=== PATIENT | female | born 1970 | race Caucasian/White ===

== ENCOUNTER 2019-02-15 23:11 | Inpatient (IN) | payer OTHER ==
[2019-02-15] MEDS ORDERED: SODIUM CHLORIDE 0.9% 2,000 ML IV STA (23:22)
[2019-02-15 23:43] LABS: Basophils % (A) 0 %; Eosinophils # (A) 0.4 k/uL (0-0.7); Eosinophils % (A) 3 %; HCT 44.7 % (34.0-46.0); Lymphocytes # (A) 2.3 k/uL (1.0-4.8); Lymphocytes % (A) 20 %; MCH 34.6 pg (25.0-35.0); MCHC 33.6 g/dL (31.0-37.0); Macrocytosis Slight; Mean Platelet Volume 7.4; Monocytes # (A) 0.4 k/uL (0-1.0); Monocytes % (A) 4 %; Neutrophils # (A) 8.4 k/uL (1.3-7.7); Neutrophils % (A) 73 %; Platelet Count 308 k/uL (150-450); RBC 4.34 m/uL (3.80-5.40); RDW 13.3 % (11.5-15.5); WBC 11.6 k/uL (3.8-10.6)
[2019-02-15 23:54] LABS: ALT 56 U/L (9-52); AST 59 U/L (14-36); Albumin 4.4 g/dL (3.5-5.0); Alkaline Phosphatase 113 U/L (38-126); Amylase 104 U/L (30-110); Anion Gap 14 mmol/L; Blood Urea Nitrogen 7 mg/dL (7-17); Calcium 9.4 mg/dL (8.4-10.2); Carbon Dioxide 23 mmol/L (22-30); Chloride 102 mmol/L (98-107); Glucose 172 mg/dL (74-99); Potassium 3.4 mmol/L (3.5-5.1); Sodium 139 mmol/L (137-145); Total Bilirubin 0.9 mg/dL (0.2-1.3); Total Protein 7.2 g/dL (6.3-8.2)
--- NOTE | 2019-02-16 00:09 | XR ---
EXAM: XR Abdomen, 1 View CLINICAL HISTORY: ITS.REASON XR Reason: abdominal pain TECHNIQUE: Frontal supine view of the abdomen/pelvis. COMPARISON: No relevant prior studies available. FINDINGS: Gastrointestinal tract: Unremarkable. No dilation. Bones/joints: Unremarkable. IMPRESSION: Normal abdominal x-ray.
[2019-02-16 00:23] LABS: Lipase 5416 U/L (23-300)
[2019-02-16] MEDS ORDERED: ONDANSETRON 4 MG/2 ML VIAL IVP STA (00:27)
[2019-02-16] MEDS ORDERED: MORPHINE SULFATE 4 MG/ML SYRINGE IVP STA (00:27)
--- NOTE | 2019-02-16 00:49 | ED ---
Abdominal Pain HPI - General Chief Complaint: Abdominal Pain Stated Complaint: Abd pain Time Seen by Provider: 02/15/19 23:22 Source: patient Mode of arrival: ambulatory Limitations: no limitations - History of Present Illness Initial Comments: Christie is a pleasant 49-year-old female who presents to the emergency room today for evaluation of abdominal pain. Patient reports that she recently underwent knee surgery, earlier this week she had a return to work and due to pain has been taking tramadol. She reports that since beginning this medication she's been having some epigastric abdominal discomfort nausea and decreased oral intake. She reports that the pain is progressively worsening she's been unable tolerate any oral intake this evening she is having nausea and vomiting. She reports she has not urinated a number of days. Patient reports she is concerned she has pancreatitis and is dehydrated. Patient reports she had an episode of pancreatitis approximately 4 years ago and was told that it was likely due to gallstones however there was no gallstones identified at the time of the evaluation she didn't require any intervention and never had her gallbladder taken out. - Related Data Home Medications Medication Instructions Recorded Confirmed Pantoprazole Sodium [Protonix] 40 mg PO DAILY 05/14/15 02/16/19 Allergies Allergy/AdvReac Type Severity Reaction Status Date / Time nickel AdvReac Swelling Verified 02/15/19 23:18 seafood AdvReac Swelling Uncoded 02/15/19 23:18 Review of Systems ROS Statement: Those systems with pertinent positive or pertinent negative responses have been documented in the HPI. ROS Other: All systems not noted in ROS Statement are negative. Past Medical History Past Medical History: GERD/Reflux, Hyperlipidemia, Hypertension, Liver Disease, Memory Impairment, Osteoarthritis (OA) Additional Past Medical History / Comment(s): PTSD, PANCREATITIS, RT CARPAL TUNNEL QUIT CIGARETTES BUT NOW SMOKES E CIG, PT STATED HAD A PNEUMONIA VACCINE IN PAST BUT BOWEN'NT KNOW FOR SURE WHEN. History of Any Multi-Drug Resistant Organisms: None Reported Past Surgical History: Orthopedic Surgery, Tubal Ligation, Uterine Ablation Additional Past Surgical History / Comment(s): stitches left thumb yrs ago. left total kneee. Past Anesthesia/Blood Transfusion Reactions: No Reported Reaction Past Psychological History: PTSD Smoking Status: Current every day smoker Past Alcohol Use History: Occasional Past Drug Use History: None Reported - Past Family History Father Family Medical History: CVA/TIA, Deep Vein Thrombosis (DVT) Additional Family Medical History / Comment(s): mom's side had cancer Mother Family Medical History: Cancer Additional Family Medical History / Comment(s): METASTATIC CANCER General Exam - General Exam Comments Initial Comments: Physical Exam GENERAL: Appears uncomfortable HENT: Normocephalic, Atraumatic. EYES: PERRL, EOMI PULMONARY: Unlabored respirations. No audible rales rhonchi or wheezing was noted. CARDIOVASCULAR: There is a regular rate and rhythm without any murmurs gallops or rubs. ABDOMEN: Tenderness to palpation in epigastrium SKIN: Skin is clear with no lesions or rashes and otherwise unremarkable. : Deferred NEUROLOGIC: Patient is alert and oriented x3. Moving all extremities spontaneously MUSCULOSKELETAL: Normal extremities with adequate strength and full range of motion. No lower extremity swelling or edema. No calf tenderness. PSYCHIATRIC: Normal psychiatric evaluation. Limitations: no limitations Limitations: no limitations Course Vital Signs 02/15/19 02/16/19 02/16/19 23:14 02:17 03:00 Temperature 97.8 F Pulse Rate 79 77 Respiratory 24 18 Rate Blood Pressure 183/108 163/114 167/103 O2 Sat by Pulse 100 97 Oximetry 02/16/19 02/16/19 03:43 04:32 Temperature 98.7 F Pulse Rate 79 Respiratory 19 Rate Blood Pressure 167/77 170/77 O2 Sat by Pulse 97 Oximetry Medical Decision Making - Medical Decision Making Patient was seen and evaluated history is obtained from patient at bedside As the patient with a history of hypertension that has progressively worsening epigastric abdominal pain nausea vomiting Plan initial evaluation the patient appears uncomfortable and is heaving Labs and imaging were ordered with a lipase of greater than 5400 Ultrasound of the gallbladder and CT of the pancreas were ordered for further evaluation Gallbladder ultrasound did not reveal any acute dilatation of the common bile duct CT pancreas pending Patient care discussed with Dr. Almaguer who accepts admission for acute pancreatitis Computed tomography scan revealed dilated pancreatic duct, no dilated common bile duct - Lab Data Result diagrams: 02/15/19 23:30 02/15/19 23:30 Lab Results 02/15/19 02/15/19 02/15/19 Range/Units 23:30 23:30 23:30 WBC 11.6 H (3.8-10.6) k/uL RBC 4.34 (3.80-5.40) m/uL Hgb 15.0 (11.4-16.0) gm/dL Hct 44.7 (34.0-46.0) % MCV 103.0 H (80.0-100.0) fL MCH 34.6 (25.0-35.0) pg MCHC 33.6 (31.0-37.0) g/dL RDW 13.3 (11.5-15.5) % Plt Count 308 (150-450) k/uL Neutrophils % 73 % Lymphocytes % 20 % Monocytes % 4 % Eosinophils % 3 % Basophils % 0 % Neutrophils # 8.4 H (1.3-7.7) k/uL Lymphocytes # 2.3 (1.0-4.8) k/uL Monocytes # 0.4 (0-1.0) k/uL Eosinophils # 0.4 (0-0.7) k/uL Basophils # 0.0 (0-0.2) k/uL Macrocytosis Slight Sodium 139 (137-145) mmol/L Potassium 3.4 L (3.5-5.1) mmol/L Chloride 102 (98-107) mmol/L Carbon Dioxide 23 (22-30) mmol/L Anion Gap 14 mmol/L BUN 7 (7-17) mg/dL Creatinine 0.59 (0.52-1.04) mg/dL Est GFR (CKD-EPI)AfAm >90 (>60 ml/min/1.73 sqM) Est GFR (CKD-EPI)NonAf >90 (>60 ml/min/1.73 sqM) Glucose 172 H (74-99) mg/dL Plasma Lactic Acid Victor M 1.3 (0.7-2.0) mmol/L Calcium 9.4 (8.4-10.2) mg/dL Total Bilirubin 0.9 (0.2-1.3) mg/dL AST 59 H (14-36) U/L ALT 56 H (9-52) U/L Alkaline Phosphatase 113 (38-126) U/L Troponin I (0.000-0.034) ng/mL Total Protein 7.2 (6.3-8.2) g/dL Albumin 4.4 (3.5-5.0) g/dL Amylase 104 (30-110) U/L Lipase 5416 H (23-300) U/L 02/15/19 Range/Units 23:30 WBC (3.8-10.6) k/uL RBC (3.80-5.40) m/uL Hgb (11.4-16.0) gm/dL Hct (34.0-46.0) % MCV (80.0-100.0) fL MCH (25.0-35.0) pg MCHC (31.0-37.0) g/dL RDW (11.5-15.5) % Plt Count (150-450) k/uL Neutrophils % % Lymphocytes % % Monocytes % % Eosinophils % % Basophils % % Neutrophils # (1.3-7.7) k/uL Lymphocytes # (1.0-4.8) k/uL Monocytes # (0-1.0) k/uL Eosinophils # (0-0.7) k/uL Basophils # (0-0.2) k/uL Macrocytosis Sodium (137-145) mmol/L Potassium (3.5-5.1) mmol/L Chloride (98-107) mmol/L Carbon Dioxide (22-30) mmol/L Anion Gap mmol/L BUN (7-17) mg/dL Creatinine (0.52-1.04) mg/dL Est GFR (CKD-EPI)AfAm (>60 ml/min/1.73 sqM) Est GFR (CKD-EPI)NonAf (>60 ml/min/1.73 sqM) Glucose (74-99) mg/dL Plasma Lactic Acid Victor M (0.7-2.0) mmol/L Calcium (8.4-10.2) mg/dL Total Bilirubin (0.2-1.3) mg/dL AST (14-36) U/L ALT (9-52) U/L Alkaline Phosphatase (38-126) U/L Troponin I <0.012 (0.000-0.034) ng/mL Total Protein (6.3-8.2) g/dL Albumin (3.5-5.0) g/dL Amylase (30-110) U/L Lipase (23-300) U/L - EKG Data -: EKG Interpreted by [facility] EKG shows normal: sinus rhythm Rate: normal EKG Comments: EKG was obtained at 12:10 AM, rate of 76 rhythm is sinus there is a normal axis, there are normal intervals, DC 154, QRS is 88, QTC is 474 there are no acute ST elevations or depressions there is no evidence of acute ischemia or infarction Disposition Clinical Impression: Acute pancreatitis Disposition: ADMITTED IP TO THIS HOSP Condition: Stable Is patient prescribed a controlled substance at d/c from ED?: No
[2019-02-16] MEDS ORDERED: NALOXONE 0.4 MG/ML 1 ML VIAL IV PRN (01:16)
[2019-02-16] MEDS ORDERED: ONDANSETRON 4 MG/2 ML VIAL IVP PRN (01:16)
[2019-02-16] MEDS: SODIUM CHLORIDE 0.9% 1,000 ML IV SCH ×4 (01:17→17:10)
--- NOTE | 2019-02-16 01:39 | US ---
EXAM: US Abdomen Limited, Right Upper Quadrant CLINICAL HISTORY: ITS.REASON US Reason: Pain, pancreatitis TECHNIQUE: Real-time ultrasound of the right upper quadrant with image documentation. COMPARISON: No relevant prior studies available. FINDINGS: Liver: Massively enlarged, fatty liver, 26 cm. No intrahepatic bile duct dilation. Gallbladder: Unremarkable. No gallstones. Common bile duct: Unremarkable as visualized. No stones. No dilation. Pancreas: Unremarkable as visualized. Right kidney: Unremarkable. No stones. No solid mass. No hydronephrosis. IMPRESSION: Massively enlarged, fatty liver, 26 cm.
--- NOTE | 2019-02-16 02:05 | CT ---
ADDENDUM - Added by Amanuel Alexandra MD on 02/16/2019 2:14 AM (-07:00) IV contrast was given EXAM: CT Abdomen and Pelvis Without Intravenous Contrast CLINICAL HISTORY: ITS.REASON CT Reason: Pain TECHNIQUE: Axial computed tomography images of the abdomen and pelvis without intravenous contrast. CTDI is 13 mGy and DLP is 710 mGy-cm. This CT exam was performed using one or more of the following dose reduction techniques: automated exposure control, adjustment of the mA and/or kV according to patient size, and/or use of iterative reconstruction technique. COMPARISON: No relevant prior studies available. FINDINGS: Lung bases: Unremarkable. No mass. No consolidation. ABDOMEN: Liver: Fatty enlarged liver. Gallbladder and bile ducts: No abnormal ductal dilation or stones. Pancreas: Mild pancreatitis. Dilated pancreatic duct at 6 mm. Spleen: Unremarkable. No splenomegaly. Adrenals: Unremarkable. No mass. Kidneys and ureters: No obstructing stones. No hydronephrosis. Stomach and bowel: No obstruction. No mucosal thickening. PELVIS: Appendix: No findings to suggest acute appendicitis. Bladder: Unremarkable. No stones. Reproductive: Unremarkable as visualized. ABDOMEN and PELVIS: Intraperitoneal space: Unremarkable. No free air. No significant fluid collection. Bones/joints: No acute fracture. No dislocation. Soft tissues: Unremarkable. Vasculature: No abdominal aortic aneurysm. Lymph nodes: Unremarkable. No enlarged lymph nodes. IMPRESSION: 1. Mild pancreatitis. No fluid collection. 2. Dilated pancreatic duct at 6 mm.
[2019-02-16] MEDS ORDERED: ENALAPRILAT 1.25 MG/ML 1 ML VIAL IVP STA (03:01)
[2019-02-16] MEDS: MORPHINE SULFATE 4 MG/ML SYRINGE IV PRN ×4 (03:05→20:36)
[2019-02-16 03:28] LABS: Appearance,Urine Clear (Clear); Bilirubin,Urine Negative (Negative); Blood,Urine Negative (Negative); Color,Urine Yellow; Glucose,Urine (UA) Negative (Negative); Ketones,Urine Negative (Negative); Leukocyte Esterase,Urine Negative (Negative); Nitrite,Urine Negative (Negative); PH, Urine 6.5 (5.0-8.0); Protein,Urine Negative (Negative); Urobilinogen,Urine <2.0 mg/dL (<2.0)
[2019-02-16 03:39] LABS: Specific Gravity,Urine >1.050 (1.001-1.035)
[2019-02-16 04:55] VITALS: BMI 32.4
[2019-02-16] MEDS ORDERED: LOSARTAN 50 MG TAB PO SCH (05:50)
[2019-02-16] MEDS ORDERED: LOSARTAN 25 MG TAB PO SCH (06:09)
[2019-02-16] MEDS: LOSARTAN 25 MG TAB PO SCH ×2 (06:13→08:12)
[2019-02-16 07:16] LABS: Glucose,Whole Blood 158 mg/dL (75-99)
[2019-02-16] MEDS ORDERED: PANTOPRAZOLE 40 MG/10 ML VIAL IV SCH (09:00)
[2019-02-16 11:44] LABS: Glucose,Whole Blood 126 mg/dL (75-99)
[2019-02-16 13:14] LABS: Basophils % (A) 0 %; Eosinophils # (A) 0.1 k/uL (0-0.7); Eosinophils % (A) 1 %; HCT 44.8 % (34.0-46.0); HGB 14.4 gm/dL (11.4-16.0); Lymphocytes # (A) 1.8 k/uL (1.0-4.8); Lymphocytes % (A) 16 %; MCH 34.2 pg (25.0-35.0); MCHC 32.2 g/dL (31.0-37.0); Macrocytosis Moderate; Mean Platelet Volume 7.3; Monocytes # (A) 0.4 k/uL (0-1.0); Monocytes % (A) 4 %; Neutrophils # (A) 8.5 k/uL (1.3-7.7); Neutrophils % (A) 78 %; Platelet Count 316 k/uL (150-450); RBC 4.23 m/uL (3.80-5.40); RDW 13.4 % (11.5-15.5); WBC 10.9 k/uL (3.8-10.6)
[2019-02-16 13:30] LABS: ALT 48 U/L (9-52); AST 33 U/L (14-36); Albumin 3.7 g/dL (3.5-5.0); Alkaline Phosphatase 87 U/L (38-126); Anion Gap 8 mmol/L; Blood Urea Nitrogen 5 mg/dL (7-17); Calcium 8.4 mg/dL (8.4-10.2); Carbon Dioxide 23 mmol/L (22-30); Chloride 108 mmol/L (98-107); Glucose 145 mg/dL (74-99); Potassium 3.7 mmol/L (3.5-5.1); Sodium 139 mmol/L (137-145); Total Bilirubin 0.7 mg/dL (0.2-1.3); Total Protein 6.3 g/dL (6.3-8.2)
[2019-02-16] MEDS: PANTOPRAZOLE 40 MG TABLET PO SCH (13:51)
--- NOTE | 2019-02-16 14:30 | HP ---
HISTORY AND PHYSICAL CHIEF COMPLAINT: Abdominal pain for about a week. HISTORY OF PRESENT ILLNESS: This is the first known admission for this 49-year-old white female. She presented after a week-long history of abdominal pain. She has had a history of pancreatitis several years ago which was related to heavy alcohol consumption. She states she is not drinking now. In the emergency room, laboratory studies indicated an elevated lipase, and liver function studies were also high. She recently had a left knee replacement and has been taking a lot of tramadol and wondered if that could be related. REVIEW OF SYSTEMS: She has had no headaches, fever, chills, chest pain, shortness of breath, cough, hemoptysis, heart disease, orthopnea, PND, etc. She does have elevated blood pressure on admission and she has been told in the past that her blood pressure was high. She takes nothing for it. She has had no ulcer disease, hematemesis, melena, melena, hematochezia, etc. She has vomited at home several times. It is of normal gastric contents. She has had no known liver disease. She was told several years ago that her pancreatitis is related to gallbladder disease, but her gallbladder is still in. She has had no melena, hematochezia, diarrhea, jaundice, hepatitis, etc. She has had no renal failure, renal disease, dysuria, frequency, urgency, incontinence, hematuria, etc. She has had problems with her left knee, but no other orthopedic problems. She is not diabetic, but her blood sugars were slightly elevated when she came into the hospital. Past medical history, family history, personal and social histories reveal that she is ALLERGIC TO SEAFOOD AND NICKEL. She has a brother who is an alcoholic. The only medication she has been taking is tramadol. Surgically she has had a tubal ligation and left knee replacement. She is under quite a bit of stress. She smokes about half a pack of cigarettes a day. LABORATORY STUDIES: White count 11,600 with a mean cell volume of 103. Platelets are normal. Potassium is slightly low 3.4. Blood sugar was 172. AST was elevated at 59 and ALT at 56. She has never had a history of hepatitis, but her liver was very large on CT. Amylase was 5416. CT did not give any obvious indication of gallbladder disease, nor did her echo. PHYSICAL EXAMINATION: Blood pressure 185/115 with a pulse of 78, respirations of 33, and she is afebrile. In general she appeared to be well developed, well nourished and slightly overweight. Lymph nodes were not enlarged. Head, ears, eyes, nose, mouth and throat were normal. Neck veins were not distended. Thyroid was not enlarged. Chest was clear. Cardiac exam was normal. The abdomen was slightly protuberant. She was tender over the epigastrium. Bowel sounds were present. Extremities are normal. Neurologically she was intact. She is admitted to the hospital with the diagnoses: 1. Pancreatitis. 2. History of pancreatitis. 3. History of alcoholism. 4. Fatty liver. 5. Hypertension. 6. Elevated blood sugars. PLAN: 1. Bed rest. 2. IV fluids. 3. Monitor blood sugars. 4. Follow pancreatic function. 5. Rule out gallbladder disease. 6. Monitor blood pressure. MMODL / IJN: [id number] /
--- NOTE | 2019-02-16 16:59 | NM ---
EXAMINATION TYPE: NM hepatobiliary w CCK DATE OF EXAM: 02/16/2019 COMPARISON: NONE HISTORY: TECHNIQUE: After the intravenous administration of 4.24 mCi Tc 99m Mebrofenin hepatobiliary scintigra phy is performed. Immediate images post injection. FINDINGS: There is satisfactory initial accumulation of tracer by the liver. The gallbladder is visualized wit hin 20 minutes. The small bowel activity is noted within 75 minutes. At one hour CCK was administer ed, patient was injected with 2.0 mcg of Kinevac, and gallbladder ejection fraction is calculated at 25 %, IMPRESSION: No focal liver defect. No evidence of cystic duct or common bile duct obstruction. There is abnormal hypokinetic gallbladder ejection fraction of 25%. Normal is more than 35%.
[2019-02-16 17:05] LABS: Glucose,Whole Blood 103 mg/dL (75-99)
[2019-02-16] MEDS: LISINOPRIL 20 MG TAB PO SCH (17:10)
[2019-02-16] MEDS: DOCUSATE 100 MG CAP PO PRN (20:35)
[2019-02-16 20:41] LABS: Glucose,Whole Blood 306 mg/dL (75-99)
[2019-02-16 23:25] LABS: Hemoglobin A1C 6.5 % (4.0-6.0)
[2019-02-17] MEDS: SODIUM CHLORIDE 0.9% 1,000 ML IV SCH ×4 (02:22→11:38)
[2019-02-17 05:39] VITALS: RESP 16
[2019-02-17] MEDS: PANTOPRAZOLE 40 MG TABLET PO SCH (07:52)
[2019-02-17] MEDS: LISINOPRIL 20 MG TAB PO SCH (07:56)
[2019-02-17] MEDS: DOCUSATE 100 MG CAP PO PRN (07:58)
[2019-02-17 09:46] LABS: Basophils % (A) 0 %; Eosinophils # (A) 0.3 k/uL (0-0.7); Eosinophils % (A) 4 %; HCT 41.8 % (34.0-46.0); HGB 13.5 gm/dL (11.4-16.0); Lymphocytes # (A) 2.2 k/uL (1.0-4.8); Lymphocytes % (A) 27 %; MCH 33.9 pg (25.0-35.0); MCHC 32.4 g/dL (31.0-37.0); MCV 104.7 fL (80.0-100.0); Macrocytosis Slight; Mean Platelet Volume 6.8; Monocytes # (A) 0.4 k/uL (0-1.0); Monocytes % (A) 5 %; Neutrophils # (A) 5.1 k/uL (1.3-7.7); Neutrophils % (A) 62 %; Platelet Count 291 k/uL (150-450); RBC 3.99 m/uL (3.80-5.40); RDW 13.8 % (11.5-15.5); WBC 8.2 k/uL (3.8-10.6)
[2019-02-17 09:51] LABS: ALT 33 U/L (9-52); AST 24 U/L (14-36); Albumin 3.5 g/dL (3.5-5.0); Alkaline Phosphatase 78 U/L (38-126); Amylase <30 U/L (30-110); Anion Gap 7 mmol/L; Blood Urea Nitrogen 3 mg/dL (7-17); Carbon Dioxide 27 mmol/L (22-30); Chloride 106 mmol/L (98-107); Glucose 179 mg/dL (74-99); Lipase 265 U/L (23-300); Potassium 3.9 mmol/L (3.5-5.1); Sodium 140 mmol/L (137-145); Total Bilirubin 0.5 mg/dL (0.2-1.3); Total Protein 5.9 g/dL (6.3-8.2)
[2019-02-17 13:29] VITALS: BP 127/73; PULSE 84; TEMP 98.2
--- NOTE | 2019-02-17 16:19 | DS ---
DISCHARGE SUMMARY CHIEF COMPLAINT: Abdominal pain. HISTORY OF PRESENT ILLNESS AND PHYSICAL EXAM: Details of this lady's history and physical can be found in the initial workup. LABORATORY STUDIES: While she was in the hospital, she had laboratory studies, details of which can be found in the laboratory section of her chart. COURSE IN HOSPITAL: After admission she was placed on bedrest and started on intravenous fluids and analgesics. Her pain subsided. She did have some elevation of her blood sugars. Her hemoglobin A1c was normal at 6.5, however. She did have elevated blood pressure, but she was treated for this. She was doing well and is asymptomatic. Her lipase is down to near normal and it was felt that she could go home. She will go home on usual diet, activity and regular medications and in addition to metformin 500 mg b.i.d. and Lotensin for blood pressure. She will come into the office sometime later this week for followup. FINAL DIAGNOSES: 1. Acute pancreatitis. 2. History of alcoholism. 3. Elevated blood sugars. 4. Elevated blood pressure operations. 5. Fatty liver. OPERATIONS: None. CONSULTATION: None. She is improved. MMODL / IJN: [id number] /
[2019-02-17] MEDS ORDERED: metFORMIN 500 MG TAB PO SCH (17:30)
[2019-02-18 11:05] LABS: Hepatitis A Antibody IgM Non-Reactive (Non-Reactive); Hepatitis B Core IgM Non-Reactive (Non-Reactive); Hepatitis C IgG Antibody Non-Reactive (Non-Reactive)
== END 2019-02-17 14:53 | disposition home or self-care (01) | DRG 440 ==
LOC: EC 23:11 → 4MS4W 02-16 01:19
PROVIDERS: ADMIT Family Medicine; ATTEND Family Medicine
DX: K85.90 Acute pancreatitis without necrosis or infection, unspecified (principal); E78.5 Hyperlipidemia, unspecified; F43.10 Post-traumatic stress disorder, unspecified; I10 Essential (primary) hypertension; K21.9 Gastro-esophageal reflux disease without esophagitis; K76.0 Fatty (change of) liver, not elsewhere classified; F17.210 Nicotine dependence, cigarettes, uncomplicated; Z96.652 Presence of left artificial knee joint; Z81.1 Family history of alcohol abuse and dependence; R73.9 Hyperglycemia, unspecified
CPT/HCPCS: 36415; 74018; 74160; 76705; 78227; 80053; 81003; 82150; 83036; 83605; 83690; 84484; 85025; 86705; 86709; 86803; 96361; 96374; 96375; 96376; 99285

== ENCOUNTER 2019-12-28 19:37 | Inpatient (IN) | payer OTHER ==
[2019-12-28] MEDS ORDERED: ONDANSETRON 4 MG/2 ML VIAL IVP STA (20:18)
[2019-12-28] MEDS ORDERED: MORPHINE SULFATE 4 MG/ML SYRINGE IV STA (20:18)
[2019-12-28] MEDS ORDERED: SODIUM CHLORIDE 0.9% 1,000 ML IV STA ×2 (20:18→21:21)
[2019-12-28 20:49] LABS: Albumin 5.6 g/dL (3.5-5.0); Calcium 11.2 mg/dL (8.4-10.2); Potassium 4.7 mmol/L (3.5-5.1); Total Bilirubin 1.1 mg/dL (0.2-1.3); Total Protein 9.4 g/dL (6.3-8.2)
[2019-12-28 20:51] LABS: Basophils % (A) 0 %; Eosinophils # (A) 0.1 k/uL (0-0.7); Eosinophils % (A) 0 %; HCT 41.9 % (34.0-46.0); HGB 14.9 gm/dL (11.4-16.0); Lymphocytes % (A) 14 %; MCH 36.5 pg (25.0-35.0); MCHC 35.5 g/dL (31.0-37.0); MCV 102.9 fL (80.0-100.0); Macrocytosis Slight; Mean Platelet Volume 8.1; Monocytes # (A) 0.9 k/uL (0-1.0); Monocytes % (A) 6 %; Neutrophils # (A) 11.4 k/uL (1.3-7.7); Neutrophils % (A) 78 %; Platelet Count 359 k/uL (150-450); RBC 4.07 m/uL (3.80-5.40); RDW 13.9 % (11.5-15.5); WBC 14.6 k/uL (3.8-10.6)
[2019-12-28 21:13] LABS: Amorphous Sediment,Urine Rare /hpf; Appearance,Urine Turbid (Clear); Bacteria,Urine Moderate /hpf; Bilirubin,Urine Negative (Negative); Blood,Urine Small (Negative); Color,Urine Light Orange; Glucose,Urine (UA) Negative (Negative); Granular Casts,Urine 23 /lpf (0); Hyaline Casts,Urine 4 /lpf (0-2); Ketones,Urine Trace (Negative); Leukocyte Esterase,Urine Trace (Negative); Mucus,Urine Many /hpf; Nitrite,Urine Negative (Negative); PH, Urine 5.5 (5.0-8.0); Protein,Urine 3+ (Negative); RBC,Urine 1 /hpf (0-5); Specific Gravity,Urine 1.034 (1.001-1.035); Squamous Epithelial Cell,Urine 37 /hpf (0-4); WBC,Urine 12 /hpf (0-5)
--- NOTE | 2019-12-28 21:23 | ED ---
General Adult HPI - General Source: patient, RN notes reviewed, old records reviewed Mode of arrival: ambulatory Limitations: no limitations <Marvin Charles - Last Filed: 12/28/19 22:04> <Calli Salcedo - Last Filed: 12/31/19 00:06> - General Chief complaint: Nausea/Vomiting/Diarrhea Stated complaint: Abd pain Time Seen by Provider: 12/28/19 19:55 - History of Present Illness Initial comments: 49-year-old female patient past history tubal ligation, previous pancreatitis due to alcohol presents to ED for chief complaint is epigastric abdominal pain, nausea vomiting, reports feels somewhat up at the times the past. Denies alcohol use. Denies any other complaints. Systemic: Pt denies fatigue, fever/chills, rash. Pt denies weakness, night sweats, weight loss. Neuro: Pt denies headache, visual disturbances, syncope or pre-syncope. HEENT: Pt denies ocular discharge or irritation, otalgia, rhinorrhea, pha ryngitis or notable lymphadenopathy. Cardiopulmonary: Pt denies chest pain, SOB, heart palpitations, dyspnea on exertion. Abdominal/GI: Pt denies diarrhea/ : Pt denies dysuria, burning w/ urination, frequency/urgency. Denies new onset urinary or bowel incontinence. MSK: Pt denies myalgia, loss of strength or function in extremities. Neuro: Pt denies new onset weakness, paresthesias. (Marvin Charles) - Related Data Home Medications Medication Instructions Recorded Confirmed Pantoprazole Sodium [Protonix] 40 mg PO DAILY 05/14/15 12/29/19 Albuterol Inhaler [Ventolin Hfa 2 puff INHALATION Q4-6H PRN 12/28/19 12/29/19 Inhaler] Cyclobenzaprine HCl 10 mg PO HS PRN 12/28/19 12/29/19 Levocetirizine Dihydrochloride 5 mg PO DAILY 12/28/19 12/29/19 [Xyzal] Lisinopril [Zestril] 20 mg PO DAILY 12/28/19 12/29/19 Meloxicam [Mobic] 15 mg PO DAILY 12/28/19 12/29/19 Methylphenidate HCl 54 mg PO DAILY PRN 12/28/19 12/29/19 [Methylphenidate HCl ER] Rosuvastatin Calcium [Crestor] 20 mg PO DAILY 12/28/19 12/29/19 Triamcinolone Acetonide [Nasacort] 2 sprays EA NOSTRIL DAILY 12/28/19 12/29/19 Ubidecarenone [Coenzyme Q10] 100 mg PO BID 12/28/19 12/29/19 Allergies Allergy/AdvReac Type Severity Reaction Status Date / Time nickel AdvReac Swelling Verified 12/29/19 12:01 seafood AdvReac Swelling Uncoded 12/28/19 19:52 Review of Systems ROS Other: All systems not noted in ROS Statement are negative. <Marvin Charles - Last Filed: 12/28/19 22:04> ROS Other: All systems not noted in ROS Statement are negative. <Calli Salcedo - Last Filed: 12/31/19 00:06> ROS Statement: Those systems with pertinent positive or pertinent negative responses have been documented in the HPI. Past Medical History Past Medical History: GERD/Reflux, Hyperlipidemia, Hypertension, Memory Impairment, Osteoarthritis (OA) Additional Past Medical History / Comment(s): PTSD, PANCREATITIS, RT CARPAL TUNNEL QUIT CIGARETTES BUT NOW SMOKES E CIG, PT STATED HAD A PNEUMONIA VACCINE IN PAST BUT BOWEN'NT KNOW FOR SURE WHEN. History of Any Multi-Drug Resistant Organisms: None Reported Past Surgical History: Orthopedic Surgery, Tubal Ligation, Uterine Ablation Additional Past Surgical History / Comment(s): stitches left thumb yrs ago. left total kneee. Past Anesthesia/Blood Transfusion Reactions: No Reported Reaction Past Psychological History: PTSD Smoking Status: Current every day smoker Past Alcohol Use History: Occasional Past Drug Use History: None Reported - Past Family History Father Family Medical History: CVA/TIA, Deep Vein Thrombosis (DVT) Additional Family Medical History / Comment(s): mom's side had cancer Mother Family Medical History: Cancer Additional Family Medical History / Comment(s): METASTATIC CANCER <Marvin Charles - Last Filed: 12/28/19 22:04> General Exam Limitations: no limitations <Marvin Charles - Last Filed: 12/28/19 22:04> - General Exam Comments Initial Comments: Constitutional: NAD, AOX3, Pt has pleasant affect. HEENT: NC/AT, trachea midline, neck supple, no lymphadenopathy. Posterior pharynx non erythematous, without exudates. External ears appear normal, without discharge. Mucous membranes moist. Eyes PERRLA, EOM intact. There is no scleral icterus. No pallor noted. Cardiopulmonary: RRR, no murmurs, rubs or gallops, no JVD noted. Lungs CTAB in anterior and posterior marrero. No peripheral edema. Abdominal exam: Abdomen soft and non-distended. Abdomen moderately tender to palpation epigastric region.. Bowel sounds active in LLQ. No hepatosplenomegaly. No ecchymosis Neuro: CN II-XII grossly intact. No nuchal rigidity. No raccon eyes, no tijerina sign, no hemotympanum. No cervical spinal tenderness. MSK: No posterior calf tenderness bilaterally, homans sign negative bilaterally. Posterior tibialis and radial pulse +2 bilaterally. Sensation intact in upper and lower extremities. Full active ROM in upper and lower extremities, 5/5 stregnth. (Marvin Charles) Course Vital Signs 12/28/19 12/28/19 12/28/19 19:48 20:57 22:07 Temperature 98.8 F 97.1 F L 97.2 F L Pulse Rate 102 H 83 90 Respiratory 20 16 18 Rate Blood Pressure 179/130 158/106 152/100 O2 Sat by Pulse 100 97 94 L Oximetry 12/28/19 22:31 Temperature Pulse Rate Respiratory Rate Blood Pressure 150/90 O2 Sat by Pulse Oximetry Procedures - [place] Protocol (Time Out) Nurse: Adria Us <Marvin Charles - Last Filed: 12/28/19 22:04> Medical Decision Making - Lab Data Result diagrams: 12/28/19 20:02 12/28/19 20:02 <Marvin Charles - Last Filed: 12/28/19 22:04> - Lab Data Result diagrams: 12/30/19 06:55 12/30/19 06:55 <Calli Salcedo - Last Filed: 12/31/19 00:06> - Medical Decision Making 49-year-old female patient past history tubal ligation, previous pancreatitis due to alcohol presents to ED for chief complaint is epigastric abdominal pain, nausea vomiting, reports feels somewhat up at the times the past. Denies alcohol use. Denies any other complaints. Patient also has this displayed hypotension likely secondary to plan. Repeat vital signs displayed improved blood pressure. Physical exam shows epigastric tenderness. Laboratory investi gations consistent with prerenal acute kidney injury. Acute pancreatitis. UA displayed 3+ protein. She denies ETOH usage. Ultrasound pending. Patient history 2 L fluid, analgesia. Case discussed with Dr. Salcedo, admitting physician Dr. Cleveland. (Marvin Charles) I was available for consultation in the emergency department. The history and physical exam were done by the midlevel provider. I was consulted for this patients care. I reviewed the case with the midlevel provider and based on their presentation of the patient, I agree with the assessment, medical decision making and plan of care as documented. I discussed the case with Dr. Cleveland who accepted admission and evaluated the patient in the ER. Chart was dictated using [employer] dictation software. Attempts were made to correct any dictation errors however some typographical errors may persist. (Calli Salcedo) - Lab Data Lab Results 12/28/19 12/28/19 12/28/19 Range/Units 20:02 20:02 20:02 WBC 14.6 H (3.8-10.6) k/uL RBC 4.07 (3.80-5.40) m/uL Hgb 14.9 (11.4-16.0) gm/dL Hct 41.9 (34.0-46.0) % MCV 102.9 H (80.0-100.0) fL MCH 36.5 H (25.0-35.0) pg MCHC 35.5 (31.0-37.0) g/dL RDW 13.9 (11.5-15.5) % Plt Count 359 (150-450) k/uL Neutrophils % 78 % Lymphocytes % 14 % Monocytes % 6 % Eosinophils % 0 % Basophils % 0 % Neutrophils # 11.4 H (1.3-7.7) k/uL Lymphocytes # 2.0 (1.0-4.8) k/uL Monocytes # 0.9 (0-1.0) k/uL Eosinophils # 0.1 (0-0.7) k/uL Basophils # 0.0 (0-0.2) k/uL Macrocytosis Slight Sodium 135 L (137-145) mmol/L Potassium 4.7 (3.5-5.1) mmol/L Chloride 96 L (98-107) mmol/L Carbon Dioxide 19 L (22-30) mmol/L Anion Gap 20 mmol/L BUN 42 H (7-17) mg/dL Creatinine 1.32 H (0.52-1.04) mg/dL Est GFR (CKD-EPI)AfAm 55 (>60 ml/min/1.73 sqM) Est GFR (CKD-EPI)NonAf 48 (>60 ml/min/1.73 sqM) Glucose 163 H (74-99) mg/dL Lactic Ac Sepsis Rflx Plasma Lactic Acid Victor M 3.1 H* (0.7-2.0) mmol/L Calcium 11.2 H (8.4-10.2) mg/dL Total Bilirubin 1.1 (0.2-1.3) mg/dL AST 40 H (14-36) U/L ALT 34 (4-34) U/L Alkaline Phosphatase 118 (38-126) U/L Total Protein 9.4 H (6.3-8.2) g/dL Albumin 5.6 H (3.5-5.0) g/dL Lipase 4075 H (23-300) U/L Urine Color Urine Appearance (Clear) Urine pH (5.0-8.0) Ur Specific [place] (1.001-1.035) Urine Protein (Negative) Urine Glucose (UA) (Negative) Urine Ketones (Negative) Urine Blood (Negative) Urine Nitrite (Negative) Urine Bilirubin (Negative) Urine Urobilinogen (<2.0) mg/dL Ur Leukocyte Esterase (Negative) Urine RBC (0-5) /hpf Urine WBC (0-5) /hpf Ur Squamous Epith Cells (0-4) /hpf Amorphous Sediment (None) /hpf Urine Bacteria (None) /hpf Hyaline Casts (0-2) /lpf Granular Casts (0) /lpf Urine Mucus (None) /hpf Urine HCG, Qual (Not Detectd) Urine Opiates Screen (NotDetected) Ur Oxycodone Screen (NotDetected) Urine Methadone Screen (NotDetected) Ur Propoxyphene Screen (NotDetected) Ur Barbiturates Screen (NotDetected) U Tricyclic Antidepress (NotDetected) Ur Phencyclidine Scrn (NotDetected) Ur Amphetamines Screen (NotDetected) U Methamphetamines Scrn (NotDetected) U Benzodiazepines Scrn (NotDetected) Urine Cocaine Screen (NotDetected) U Marijuana (THC) Screen (NotDetected) 12/28/19 12/28/19 12/28/19 Range/Units 20:52 20:55 20:55 WBC (3.8-10.6) k/uL RBC (3.80-5.40) m/uL Hgb (11.4-16.0) gm/dL Hct (34.0-46.0) % MCV (80.0-100.0) fL MCH (25.0-35.0) pg MCHC (31.0-37.0) g/dL RDW (11.5-15.5) % Plt Count (150-450) k/uL Neutrophils % % Lymphocytes % % Monocytes % % Eosinophils % % Basophils % % Neutrophils # (1.3-7.7) k/uL Lymphocytes # (1.0-4.8) k/uL Monocytes # (0-1.0) k/uL Eosinophils # (0-0.7) k/uL Basophils # (0-0.2) k/uL Macrocytosis Sodium (137-145) mmol/L Potassium (3.5-5.1) mmol/L Chloride (98-107) mmol/L Carbon Dioxide (22-30) mmol/L Anion Gap mmol/L BUN (7-17) mg/dL Creatinine (0.52-1.04) mg/dL Est GFR (CKD-EPI)AfAm (>60 ml/min/1.73 sqM) Est GFR (CKD-EPI)NonAf (>60 ml/min/1.73 sqM) Glucose (74-99) mg/dL Lactic Ac Sepsis Rflx Y Plasma Lactic Acid Victor M (0.7-2.0) mmol/L Calcium (8.4-10.2) mg/dL Total Bilirubin (0.2-1.3) mg/dL AST (14-36) U/L ALT (4-34) U/L Alkaline Phosphatase (38-126) U/L Total Protein (6.3-8.2) g/dL Albumin (3.5-5.0) g/dL Lipase (23-300) U/L Urine Color Light [place] Urine Appearance Turbid H (Clear) Urine pH 5.5 (5.0-8.0) Ur Specific [place] 1.034 (1.001-1.035) Urine Protein 3+ H (Negative) Urine Glucose (UA) Negative (Negative) Urine Ketones Trace H (Negative) Urine Blood Small H (Negative) Urine Nitrite Negative (Negative) Urine Bilirubin Negative (Negative) Urine Urobilinogen 2.0 (<2.0) mg/dL Ur Leukocyte Esterase Trace H (Negative) Urine RBC 1 (0-5) /hpf Urine WBC 12 H (0-5) /hpf Ur Squamous Epith Cells 37 H (0-4) /hpf Amorphous Sediment Rare H (None) /hpf Urine Bacteria Moderate H (None) /hpf Hyaline Casts 4 H (0-2) /lpf Granular Casts 23 (0) /lpf Urine Mucus Many H (None) /hpf Urine HCG, Qual Not Detected (Not Detectd) Urine Opiates Screen Detected H (NotDetected) Ur Oxycodone Screen Not Detected (NotDetected) Urine Methadone Screen Not Detected (NotDetected) Ur Propoxyphene Screen Not Detected (NotDetected) Ur Barbiturates Screen Not Detected (NotDetected) U Tricyclic Antidepress Detected H (NotDetected) Ur Phencyclidine Scrn Not Detected (NotDetected) Ur Amphetamines Screen Not Detected (NotDetected) U Methamphetamines Scrn Not Detected (NotDetected) U Benzodiazepines Scrn Not Detected (NotDetected) Urine Cocaine Screen Not Detected (NotDetected) U Marijuana (THC) Screen Not Detected (NotDetected) Disposition Is patient prescribed a controlled substance at d/c from ED?: No <Marvin Charles - Last Filed: 12/28/19 22:04> <Calli Salcedo - Last Filed: 12/31/19 00:06> Clinical Impression: Acute pancreatitis, ENZO (acute kidney injury) Disposition: ADMITTED IP TO THIS HOSP Condition: Serious
[2019-12-28 21:28] LABS: Amphetamine Screen,Urine Not Detected (NotDetected); Barbiturate Screen,Urine Not Detected (NotDetected); Benzodiazepines Screen,Urine Not Detected (NotDetected); Cocaine Screen,Urine Not Detected (NotDetected); Methadone Screen, Urine Not Detected (NotDetected); Opiate Screen,Urine Detected (NotDetected); Oxycodone Screen, Urine Not Detected (NotDetected); Phencyclidine Screen,Urine Not Detected (NotDetected); Tricyclic Antidepressant,Urine Detected (NotDetected); Urn Cannabinoid Scrn Not Detected (NotDetected)
[2019-12-28] MEDS ORDERED: HYDROmorphone 1 MG/ML 1 ML SYRINGE IVP STA (21:45)
[2019-12-28] MEDS ORDERED: ONDANSETRON 4 MG/2 ML VIAL IVP PRN (22:05)
[2019-12-28] MEDS ORDERED: NALOXONE 0.4 MG/ML 1 ML VIAL IV PRN (22:05)
[2019-12-28] MEDS ORDERED: SODIUM CHLORIDE 0.9% 1,000 ML IV SCH (22:15)
--- NOTE | 2019-12-28 23:12 | US ---
EXAMINATION TYPE: US gallbladder DATE OF EXAM: 12/28/2019 COMPARISON: CT, US CLINICAL HISTORY: Pancreatitis. Epigastric pain and back pain x 1 week EXAM MEASUREMENTS: Liver Length: 19.1 cm Gallbladder Wall: 0.2 cm CBD: 1.2 cm Right Kidney: 12.4 x 4.7 x 3.8 cm Pancreas: hypoechoic heterogeneous appearance with abnormally dilated pancreatic duct at 0.7cm Liver: fatty liver as is hyperechoic to right renal cortex Gallbladder: wnl Evidence for sonographic Gomez's sign: tender here CBD: abnormally dilated Right Kidney: No hydronephrosis or masses seen IMPRESSION: Large pancreatic duct similar to old CT scan of 02/16/2019. No gallstones. Large common bile duct but no dilation of the intrahepatic bile ducts. Fatty infiltration of the liver. No pancreatic mass seen.
--- NOTE | 2019-12-29 01:12 | P.HPIM ---
History of Present Illness H&P Date: 12/28/19 The patient is a 49-year-old female with a PMH of multiple bouts of pancreatitis, history of alcohol abuse (the reports that she quit heavy drinking 10 years ago, with last drink one month ago), hypertension, asthma, hyperlipidemia, GERD, and depression who presented to the ED with complaints of gradually worsening nausea and vomiting with severe epigastric pain with radiation to the back. The patient reports that her symptoms started 3-4 days ago, with no clear inciting event. She reports that her pain and symptoms feel very similar nature to her previous episodes of pancreatitis. At time of interview, she reported pain intermittently, 7 out of 10, alleviated with the opiates in the emergency room with no clear exacerbating factors. She denied any recent alcohol use, and reported that her last drink was over a month ago. She reports multiple episodes of vomiting throughout the day today with some loose bowel movements. She denied melena, hematochezia, or hematemesis. She also den ied any trauma or any [id number] medication use. She further denied chest pain, fever, chills, or sick contacts. The patient underwent an extensive evaluation in the emergency room with WBC count 14.6, hemoglobin 13.5, lipase 4075, BUN 42, creatinine 1.32, lactic acid 3.1, contaminated UA, and urine toxicology positive for tricyclic antidepressants and opiates. Right upper quadrant ultrasound revealed a large pancreatic duct, unchanged from previous exam, with no gallstones visualized. The patient was admitted to the medicine service for further management. Review of Systems Pertinent positives and negatives as discussed in HPI, a complete review of syst ems was performed and all other systems are negative. Past Medical History Past Medical History: GERD/Reflux, Hyperlipidemia, Hypertension, Memory Impairment, Osteoarthritis (OA) Additional Past Medical History / Comment(s): PTSD, PANCREATITIS, RT CARPAL TUNNEL QUIT CIGARETTES BUT NOW SMOKES E CIG, PT STATED HAD A PNEUMONIA VACCINE IN PAST BUT BOWEN'NT KNOW FOR SURE WHEN. History of Any Multi-Drug Resistant Organisms: None Reported Past Surgical History: Orthopedic Surgery, Tubal Ligation, Uterine Ablation Additional Past Surgical History / Comment(s): stitches left thumb yrs ago. left total kneee. Past Anesthesia/Blood Transfusion Reactions: No Reported Reaction Past Psychological History: PTSD Smoking Status: Current every day smoker Past Alcohol Use History: Occasional Past Drug Use History: None Reported - Past Family History Father Family Medical History: CVA/TIA, Deep Vein Thrombosis (DVT) Additional Family Medical History / Comment(s): mom's side had cancer Mother Family Medical History: Cancer Additional Family Medical History / Comment(s): METASTATIC CANCER Medications and Allergies Home Medications Medication Instructions Recorded Confirmed Type Pantoprazole Sodium [Protonix] 40 mg PO DAILY 05/14/15 12/28/19 History Albuterol Inhaler [Ventolin Hfa 2 puff INHALATION Q4-6H PRN 12/28/19 12/28/19 History Inhaler] Cyclobenzaprine HCl 10 mg PO HS 12/28/19 12/28/19 History Levocetirizine Dihydrochloride 5 mg PO DAILY 12/28/19 12/28/19 History [Xyzal] Lisinopril [Zestril] 20 mg PO DAILY 12/28/19 12/28/19 History Meloxicam [Mobic] 15 mg PO DAILY 12/28/19 12/28/19 History Methylphenidate HCl 54 mg PO DAILY PRN 12/28/19 12/28/19 History [Methylphenidate HCl ER] Rosuvastatin Calcium [Crestor] 20 mg PO DAILY 12/28/19 12/28/19 History Triamcinolone Acetonide [Nasacort] 2 sprays EA NOSTRIL DAILY 12/28/19 12/28/19 History Ubidecarenone [Coenzyme Q10] 100 mg PO BID 12/28/19 12/28/19 History Allergies Allergy/AdvReac Type Severity Reaction Status Date / Time nickel AdvReac Swelling Verified 12/28/19 19:52 seafood AdvReac Swelling Uncoded 12/28/19 19:52 Physical Exam Vitals: Vital Signs Temp Pulse Resp BP Pulse Ox 12/28/19 22:07 97.2 F L 90 18 152/100 94 L 12/28/19 20:57 97.1 F L 83 16 158/106 97 12/28/19 19:48 98.8 F 102 H 20 179/130 100 Intake and Output 12/28/19 12/28/19 12/28/19 06:59 14:59 22:59 Other: Weight 92.986 kg General: non toxic, in moderate distress, appears at stated age, obese Derm: no unusual rashes/lesions no unusual ecchymoses, warm, dry Head: atraumatic, normocephalic, symmetric Eyes: EOMI, no lid lag, anicteric sclera, pupils equal round reactive to light ENT: Nose and ears atraumatic, no thrush, no pharyngeal erythema Neck: No thyromegaly, no cervical lymphadenopathy, trachea midline, supple Mouth: no lip lesion, mucus membranes moist Cardiovascular: S1S2 reg, no murmur, positive posterior tibial pulse bilateral, no edema, capillary refill less than 2 seconds Lungs: CTA bilateral, no rhonchi, no rales , no accessory muscle use Abdominal: soft, epigastric tenderness to palpation, no guarding, no appreciable organomegaly, normal bowel sounds Ext: no gross muscle atrophy, muscle strength 5 out of 5 in all 4 extremities grossly, no contractures, Neuro: CN II-XI grossly intact, light touch intact all 4 extremities, finger to nose within normal limits, Psych: Alert, oriented, appropriate affect Results CBC & Chem 7: 12/28/19 20:02 12/28/19 20:02 Labs: Abnormal Lab Results - Last 24 Hours (Table) 12/28/19 12/28/19 12/28/19 Range/Units 20:02 20:02 20:02 WBC 14.6 H (3.8-10.6) k/uL MCV 102.9 H (80.0-100.0) fL MCH 36.5 H (25.0-35.0) pg Neutrophils # 11.4 H (1.3-7.7) k/uL Sodium 135 L (137-145) mmol/L Chloride 96 L (98-107) mmol/L Carbon Dioxide 19 L (22-30) mmol/L BUN 42 H (7-17) mg/dL Creatinine 1.32 H (0.52-1.04) mg/dL Glucose 163 H (74-99) mg/dL Plasma Lactic Acid Victor M 3.1 H* (0.7-2.0) mmol/L Calcium 11.2 H (8.4-10.2) mg/dL AST 40 H (14-36) U/L Total Protein 9.4 H (6.3-8.2) g/dL Albumin 5.6 H (3.5-5.0) g/dL Lipase 4075 H (23-300) U/L Urine Appearance (Clear) Urine Protein (Negative) Urine Ketones (Negative) Urine Blood (Negative) Ur Leukocyte Esterase (Negative) Urine WBC (0-5) /hpf Ur Squamous Epith Cells (0-4) /hpf Amorphous Sediment (None) /hpf Urine Bacteria (None) /hpf Hyaline Casts (0-2) /lpf Urine Mucus (None) /hpf Urine Opiates Screen (NotDetected) U Tricyclic Antidepress (NotDetected) 12/28/19 Range/Units 20:55 WBC (3.8-10.6) k/uL MCV (80.0-100.0) fL MCH (25.0-35.0) pg Neutrophils # (1.3-7.7) k/uL Sodium (137-145) mmol/L Chloride (98-107) mmol/L Carbon Dioxide (22-30) mmol/L BUN (7-17) mg/dL Creatinine (0.52-1.04) mg/dL Glucose (74-99) mg/dL Plasma Lactic Acid Victor M (0.7-2.0) mmol/L Calcium (8.4-10.2) mg/dL AST (14-36) U/L Total Protein (6.3-8.2) g/dL Albumin (3.5-5.0) g/dL Lipase (23-300) U/L Urine Appearance Turbid H (Clear) Urine Protein 3+ H (Negative) Urine Ketones Trace H (Negative) Urine Blood Small H (Negative) Ur Leukocyte Esterase Trace H (Negative) Urine WBC 12 H (0-5) /hpf Ur Squamous Epith Cells 37 H (0-4) /hpf Amorphous Sediment Rare H (None) /hpf Urine Bacteria Moderate H (None) /hpf Hyaline Casts 4 H (0-2) /lpf Urine Mucus Many H (None) /hpf Urine Opiates Screen Detected H (NotDetected) U Tricyclic Antidepress Detected H (NotDetected) Assessment and Plan Plan: Pancreatitis, unclear etiology -Hypercalcemia possibly a culprit, though only borderline elevated and low to normal during previous bouts -Alcohol level < 10 -Check lipid panel for triglycerides -C/w IVFs NS 200 cc/hr -Monitor lipase -Pain control with Dilaudid -Antiemetics -GI consulted ENZO, prerenal -Likely due to dehydration in setting of intractable nausea and vomiting from pancreatitis -Continue with IV fluids -Monitor BMP Lactic acidosis -Likely due to dehydration and ENZO -Monitor to resolution Leukocytosis -No signs of active infection at this time -Likely due to acute stress -Monitor CBC Chronic conditions: Hypertension, asthma, GERD, hyperlipidemia -Continue with home meds DVT prophylaxis -Heparin subq The patient is admitted with an anticipated greater than 2 midnight stay for evaluation of pancreatitis CODE STATUS: Full Code Discussed with: Patient Anticipated discharge date: 2-[address]: Home A total of 40 minutes was spent on the care of this complex patient more than 50% of the time was spent in counseling and care coordination.
[2019-12-29] MEDS: HYDROmorphone 1 MG/ML 1 ML SYRINGE IVP PRN ×7 (01:40→20:42)
[2019-12-29] MEDS: SODIUM CHLORIDE 0.9% 1,000 ML IV SCH ×2 (04:36→07:33)
[2019-12-29 06:51] LABS: HCT 36.9 % (34.0-46.0); HGB 12.5 gm/dL (11.4-16.0); MCH 35.8 pg (25.0-35.0); MCHC 33.8 g/dL (31.0-37.0); MCV 105.8 fL (80.0-100.0); Macrocytosis Moderate; Mean Platelet Volume 7.8; Platelet Count 257 k/uL (150-450); RBC 3.49 m/uL (3.80-5.40); RDW 13.9 % (11.5-15.5); WBC 12.5 k/uL (3.8-10.6)
[2019-12-29 06:59] LABS: Calcium 9.5 mg/dL (8.4-10.2)
[2019-12-29] MEDS: FLUTICASONE 50MCG/SPRAY NASAL 16GM EA NOSTRIL SCH (07:30)
[2019-12-29] MEDS: PANTOPRAZOLE 40 MG TABLET PO SCH ×2 (07:30→11:01)
[2019-12-29] MEDS: HEPARIN SODIUM,PORCINE 5,000 UNIT/ML 1 ML VIAL SQ SCH ×2 (07:31→16:58)
[2019-12-29] MEDS: ONDANSETRON 4 MG/2 ML VIAL IVP PRN ×2 (09:33→14:44)
[2019-12-29 11:30] VITALS: BMI 30.2
--- NOTE | 2019-12-29 11:30 | CONS ---
CONSULTATION DATE OF DICTATION: December 29, 2019. REQUESTING PHYSICIAN: Dr. Ailyn Mendoza. REASON FOR CONSULTATION: Acute pancreatitis. HISTORY OF PRESENTING ILLNESS: The patient is a 49-year-old pleasant white female admitted to the hospital with 2 episodes of acute pancreatitis in the past. The last 1 about 2 years ago and history of alcohol abuse, which she apparently quit drinking about a month ago. Prior to that, she has slowed down significantly, was admitted to the hospital because of acute onset of severe epigastric pain associated with nausea, vomiting for the last 4 days duration. The pain is mostly in the epigastric area radiating to her back associated with intense nausea. She has been requiring pain medications every 3-4 hours. Her 1st episode of pancreatitis was 7 years ago and her second episode of pancreatitis was 2 years ago. She has a history of heavy drinking in the past, but after her 2nd attack 2 years ago she significantly slowed down and was drinking about once a month. The last drink was about a month ago. In the ER she was noted to have elevated lipase of 4075 and slightly elevated white count of 14.6. This morning, she states that she continues to feel the same. Continues to have persistent epigastric pain. Ultrasound of the abdomen did show evidence of dilated pancreatic duct to 7 mm which is unchanged from the prior examination 2 years ago. PAST MEDICAL HISTORY: GERD, hypertension, hyperlipidemia, degenerative joint disease. Posttraumatic stress disorder, acute recurrent pancreatitis. PAST SURGICAL HISTORY: Tubal ligation, uterine ablation. MEDICATIONS: At home include Protonix, Ventolin, cyclobenzaprine, Xyzal, Zestril, Mobic, Crestor, Nasacort, methylphenidate. ALLERGIES: SEAFOOD. SOCIAL HISTORY: Chronic smoker. Alcohol use as mentioned above. FAMILY HISTORY: Father CVA and DVT. Mother metastatic cancer. REVIEW OF SYSTEMS: CARDIOPULMONARY: No chest pain or shortness of breath. GENITOURINARY: No dysuria or hematuria. MUSCULOSKELETAL: Unremarkable. SKIN unremarkable. ENDOCRINE unremarkable. PSYCHIATRIC unremarkable. NEUROLOGY unremarkable. ENT/vision unremarkable. CONSTITUTIONAL: No recent weight loss. No fever, chills, night sweats. PHYSICAL EXAMINATION: She appears quite uncomfortable because of the pain. Blood pressure 172/97, pulse is 86, temperature 97.5. HEENT examination unremarkable. Conjunctivae pink. Sclerae anicteric. Oral cavity no lesions. NECK: No JVD or lymph node enlargement. CHEST: Clear to auscultation. HEART: Regular rate and rhythm. ABDOMEN is diffusely tender, more tenderness in the epigastric area. Bowel sounds are positive. No organomegaly. EXTREMITIES: No pedal edema. SKIN no rashes. NEUROLOGIC: Alert and oriented x3. No focal deficits. LABS: Done at the time of admission to the hospital: WBC 14.6, hemoglobin 14.9, platelets normal. Lipase was 4075. AST and ALT are 40 and 34 respectively. T-bilirubin and alkaline phosphatase are within normal limits. Plasma lactic acid was 3.1. Today plasma lactic acid is 1.3, BUN 42, creatinine 1.32. Today, BUN is 41, creatinine 1.18, triglycerides 417. Lipase is up to 6400. Serum alcohol less than 10. WBC 12.5, hemoglobin 12.5. IMPRESSION: 1. Acute recurrent pancreatitis with history of heavy alcohol abuse in the past, which she slowed down significantly for the last 2 years and quit about a month ago. She also noted to have elevated triglycerides with fasting triglycerides at 417 and possibility of this hyperlipidemia contributing to pancreatitis needs to be considered in addition to history of alcohol abuse. Recent imaging studies with ultrasound showed dilated pancreatic duct, but appears stable compared to the prior CT scan 2 years ago. 2. Elevated BUN, creatinine, probably from prerenal azotemia. 3. Lactic acidosis has improved. RECOMMENDATIONS: 1. Continue with symptomatic and supportive care. 2. Aggressive IV hydration. 3. Pain medications as needed. 4. Control of triglyceridemia on outpatient basis. 5. Once attack is over, the patient was advised to follow up in the office and we will discuss with the patient regarding endoscopic ultrasound of the pancreas on outpatient basis. Thank you for this consultation. MMODL / IJN: [id number] /
[2019-12-29] MEDS: LACTATED RINGERS 1,000 ML IV SCH ×2 (11:35→16:59)
[2019-12-29] MEDS: CYCLOBENZAPRINE 5 MG TAB PO PRN (14:00)
--- NOTE | 2019-12-29 17:45 | P.PN ---
Subjective Progress Note Date: 12/29/19 Principal diagnosis: abdominal pain Female with a past medical history of multiple bouts of acute pancreatitis, prior alcohol abuse (heavy drinking but she quit 10 years ago and now drinks socially approximately 1-2 times monthly), hypertension, asthma, dyslipidemia, GERD, and newly discovered sinusitis who presented to the ER with worsening abdominal pain and, nausea, and vomiting. In the emergency department she underwent an extensive evaluation. On arrival she was hypertensive with a blood pressure 179/130 and her pulse was 102. Laboratory analysis showed an elevated white blood cell count of 14.6, sodium 135, chloride 96, carbon dioxide 19, anion gap 20, even 42, creatinine 1.32, lactic acid 3.1, calcium 11.2, AST 40, ALT 34, albumin 5.6, total protein 9.4, and lipase of 4075. Gallbladder ultrasound showed large pancreatic with a large common bile duct but no dilation of intrahepatic duct, fatty infiltration of liver, and no pancreatic mass. On the morning of 12/29 her white blood cell count had improved to 12.5, creatinine improved to 1.18, and lactic acid was resolved. Her hyper calcium he had also resolved calcium 9.5. She was noted to have elevated cholesterols levels with a triglyceride of 417. Her lipase elevated to 6400 and her pain was worsened. She reports that all this began after she was having post nasal drip inducing vomiting. Patient seen and examined at bedside. She states her abdominal pain is worsened today than yesterday. She denies any shortness of breath, still reports nausea, reports that she is now having back spasming and pain after her recurrent episodes of vomiting. She reports that she feels this is all tied in her sinusitis. We discussed her dilated pancreatic duct which has been present for quite some time and need for outpatient EUS. Objective - Vital Signs Vital signs: Vital Signs Temp 98 F 12/29/19 15:38 Pulse 83 12/29/19 15:38 Resp 16 12/29/19 15:38 BP 176/91 12/29/19 15:38 Pulse Ox 95 12/29/19 15:38 Intake & Output 12/28/19 12/29/19 12/29/19 18:59 06:59 18:59 Weight 92.986 kg 92.986 kg Other: Voiding Method Toilet Toilet # Voids 1 2 - Exam General: Ill appearing, moderate distress, appears at stated age Derm: warm, dry Head: atraumatic, normocephalic, symmetric Eyes: EOMI, no lid lag, anicteric sclera Mouth: no lip lesion, mucus membranes moist Cardiovascular: S1S2 reg, no murmur, positive posterior tibial pulse bilateral, Lungs: Decreased breath sounds bilateral, no rhonchi, no rales , no accessory muscle use Abdominal: soft, + tender to palpation diffusely, no guarding, no appreciable organomegaly Ext: no gross muscle atrophy, no edema, no contractures Neuro: CN II-XI grossly intact, no focal neuro deficits Psych: Alert, oriented, upset and in pain - Labs CBC & Chem 7: 12/29/19 06:15 12/29/19 06:15 Labs: Abnormal Lab Results - Last 24 Hours (Table) 12/28/19 12/28/19 12/28/19 Range/Units 20:02 20:02 20:02 WBC 14.6 H (3.8-10.6) k/uL RBC (3.80-5.40) m/uL MCV 102.9 H (80.0-100.0) fL MCH 36.5 H (25.0-35.0) pg Neutrophils # 11.4 H (1.3-7.7) k/uL Sodium 135 L (137-145) mmol/L Chloride 96 L (98-107) mmol/L Carbon Dioxide 19 L (22-30) mmol/L BUN 42 H (7-17) mg/dL Creatinine 1.32 H (0.52-1.04) mg/dL Glucose 163 H (74-99) mg/dL Plasma Lactic Acid Victor M 3.1 H* (0.7-2.0) mmol/L Calcium 11.2 H (8.4-10.2) mg/dL AST 40 H (14-36) U/L Total Protein 9.4 H (6.3-8.2) g/dL Albumin 5.6 H (3.5-5.0) g/dL Triglycerides (<150) mg/dL Cholesterol (<200) mg/dL HDL Cholesterol (40-60) mg/dL Lipase 4075 H (23-300) U/L Urine Appearance (Clear) Urine Protein (Negative) Urine Ketones (Negative) Urine Blood (Negative) Ur Leukocyte Esterase (Negative) Urine WBC (0-5) /hpf Ur Squamous Epith Cells (0-4) /hpf Amorphous Sediment (None) /hpf Urine Bacteria (None) /hpf Hyaline Casts (0-2) /lpf Urine Mucus (None) /hpf Urine Opiates Screen (NotDetected) U Tricyclic Antidepress (NotDetected) 12/28/19 12/29/19 12/29/19 Range/Units 20:55 06:15 06:15 WBC 12.5 H (3.8-10.6) k/uL RBC 3.49 L (3.80-5.40) m/uL MCV 105.8 H (80.0-100.0) fL MCH 35.8 H (25.0-35.0) pg Neutrophils # (1.3-7.7) k/uL Sodium (137-145) mmol/L Chloride (98-107) mmol/L Carbon Dioxide (22-30) mmol/L BUN 41 H (7-17) mg/dL Creatinine 1.18 H (0.52-1.04) mg/dL Glucose 138 H (74-99) mg/dL Plasma Lactic Acid Victor M (0.7-2.0) mmol/L Calcium (8.4-10.2) mg/dL AST (14-36) U/L Total Protein (6.3-8.2) g/dL Albumin (3.5-5.0) g/dL Triglycerides 417 H (<150) mg/dL Cholesterol 247 H (<200) mg/dL HDL Cholesterol 68 H (40-60) mg/dL Lipase 6400 H (23-300) U/L Urine Appearance Turbid H (Clear) Urine Protein 3+ H (Negative) Urine Ketones Trace H (Negative) Urine Blood Small H (Negative) Ur Leukocyte Esterase Trace H (Negative) Urine WBC 12 H (0-5) /hpf Ur Squamous Epith Cells 37 H (0-4) /hpf Amorphous Sediment Rare H (None) /hpf Urine Bacteria Moderate H (None) /hpf Hyaline Casts 4 H (0-2) /lpf Urine Mucus Many H (None) /hpf Urine Opiates Screen Detected H (NotDetected) U Tricyclic Antidepress Detected H (NotDetected) Microbiology - Last 24 Hours (Table) 02/22/20 20:55 Urine Culture - Preliminary Urine,Voided Assessment and Plan Assessment: Acute recurrent pancreatitis - elevated triglcerides - pain control, antiemetics - change fluid to LR and increase rate - repeat lipase in AM to ensure improvement - dilated pancreatic duct, outpatient EUS and follow-up HLD - on crestor and fenofibrate on discharge - outpatient follow-up ENZO due to dehydration, improving - avoid additional nephrotoxic agents - lisinopril on hold - IVF - repeat Cr in AM HTN - lsinopril on hold due to ENZO - follow BP Sinusitis - flonase - outpatient follow-up Lactic acidosis, resolved Hypercalcemia due to dehydration, resolved DVT prophylaxis: Heparin Discussed with: patient, nursing Anticipated discharge: 2-[address]: home A total of 35 minutes was spent on the care of this complex patient more than 50% of the time was spent in counseling and care coordination.
[2019-12-29] MEDS ORDERED: hydrALAZINE HCL 50 MG TAB PO STA (22:32)
[2019-12-30] MEDS: HEPARIN SODIUM,PORCINE 5,000 UNIT/ML 1 ML VIAL SQ SCH ×4 (00:29→22:23)
[2019-12-30] MEDS: HYDROmorphone 1 MG/ML 1 ML SYRINGE IVP PRN ×6 (01:40→22:21)
[2019-12-30] MEDS: LACTATED RINGERS 1,000 ML IV SCH ×4 (06:59→20:17)
[2019-12-30 07:19] LABS: HCT 35.1 % (34.0-46.0); HGB 12.1 gm/dL (11.4-16.0); MCH 36.2 pg (25.0-35.0); MCHC 34.5 g/dL (31.0-37.0); MCV 104.8 fL (80.0-100.0); Macrocytosis Slight; Mean Platelet Volume 7.5; Platelet Count 216 k/uL (150-450); RBC 3.35 m/uL (3.80-5.40); RDW 13.5 % (11.5-15.5); WBC 13.7 k/uL (3.8-10.6)
[2019-12-30 07:31] LABS: ALT 16 U/L (4-34); AST 20 U/L (14-36); African American GFR (CKD) >90 (>60 ml/min/1.73 sqM); Albumin 4.1 g/dL (3.5-5.0); Alkaline Phosphatase 81 U/L (38-126); Anion Gap 11 mmol/L; Blood Urea Nitrogen 25 mg/dL (7-17); Calcium 9.4 mg/dL (8.4-10.2); Carbon Dioxide 23 mmol/L (22-30); Chloride 100 mmol/L (98-107); Glucose 133 mg/dL (74-99); Non-African American GFR(CKD) 81 (>60 ml/min/1.73 sqM); Potassium 3.7 mmol/L (3.5-5.1); Sodium 134 mmol/L (137-145); Total Bilirubin 1.5 mg/dL (0.2-1.3); Total Protein 6.9 g/dL (6.3-8.2)
[2019-12-30] MEDS: CYCLOBENZAPRINE 5 MG TAB PO PRN (08:37)
[2019-12-30] MEDS: PANTOPRAZOLE 40 MG/10 ML VIAL IVP SCH (08:37)
[2019-12-30] MEDS: FLUTICASONE 50MCG/SPRAY NASAL 16GM EA NOSTRIL SCH (08:50)
[2019-12-30] MEDS: LISINOPRIL 20 MG TAB PO SCH (11:12)
--- NOTE | 2019-12-30 20:52 | P.PN ---
Subjective Progress Note Date: 12/30/19 (delayed charting seen at 1105) Principal diagnosis: abdominal pain Female with a past medical history of multiple bouts of acute pancreatitis, prior alcohol abuse (heavy drinking but she quit 10 years ago and now drinks socially approximately 1-2 times monthly), hypertension, asthma, dyslipidemia, GERD, and newly discovered sinusitis who presented to the ER with worsening abdo russell pain and, nausea, and vomiting. In the emergency department she underwent an extensive evaluation. On arrival she was hypertensive with a blood pressure 179/130 and her pulse was 102. Laboratory analysis showed an elevated white blood cell count of 14.6, sodium 135, chloride 96, carbon dioxide 19, anion gap 20, even 42, creatinine 1.32, lactic acid 3.1, calcium 11.2, AST 40, ALT 34, albumin 5.6, total protein 9.4, and lipase of 4075. Gallbladder ultrasound showed large pancreatic with a large common bile duct but no dilation of intrahepatic duct, fatty infiltration of liver, and no pancreatic mass. On the morning of 12/29 her white blood cell count had improved to 12.5, creatinine improved to 1.18, and lactic acid was resolved. Her hypercalcium he had also resolved calcium 9.5. She was noted to have elevated cholesterols levels with a triglyceride of 417. Her lipase elevated to 6400 and her pain was worsened. She reports that all this began after she was having post nasal drip inducing vomiting. Patient seen and examined at bedside. 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 Willing to add fenofibrate to crestor. Pain improved and back pain improved. Still not hungry. Denies any shortness of breath. Objective - Vital Signs Vital signs: Vital Signs Temp 97.8 F 12/30/19 18:45 Pulse 127 H 12/30/19 18:45 Resp 17 12/30/19 18:45 BP 165/96 12/30/19 18:45 Pulse Ox 97 12/30/19 18:45 Intake & Output 12/30/19 12/30/19 12/31/19 06:59 18:59 06:59 Intake Total 300 Balance 300 Intake: Intake, IV Titration 300 Amount Sodium Chloride 0.9% 1, 300 000 ml @ 150 mls/hr IV . Q6H40M [facility] Rx#:[id number] Other: Voiding Method Toilet Toilet Toilet # Voids 1 2 - Exam General: non toxic , no distress, appears at stated age Derm: warm, dry Head: atraumatic, normocephalic, symmetric Eyes: EOMI, no lid lag, anicteric sclera Mouth: no lip lesion, mucus membranes moist Cardiovascular: S1S2 reg, no murmur, positive posterior tibial pulse bilateral, Lungs: Decreased breath sounds bilateral, no rhonchi, no rales , no accessory muscle use Abdominal: soft, + tender to palpation diffusely, no guarding, no appreciable organomegaly Ext: no gross muscle atrophy, no edema, no contractures Neuro: CN II-XI grossly intact, no focal neuro deficits Psych: Alert, oriented, upset and in pain - Labs CBC & Chem 7: 12/30/19 06:55 12/30/19 06:55 Labs: Abnormal Lab Results - Last 24 Hours (Table) 12/30/19 12/30/19 Range/Units 06:55 06:55 WBC 13.7 H (3.8-10.6) k/uL RBC 3.35 L (3.80-5.40) m/uL MCV 104.8 H (80.0-100.0) fL MCH 36.2 H (25.0-35.0) pg Sodium 134 L (137-145) mmol/L BUN 25 H (7-17) mg/dL Glucose 133 H (74-99) mg/dL Total Bilirubin 1.5 H (0.2-1.3) mg/dL Lipase 2485 H (23-300) U/L Microbiology - Last 24 Hours (Table) 12/28/19 20:55 Urine Culture - Final Urine,Voided Assessment and Plan Assessment: Acute recurrent pancreatitis - elevated triglcerides add fenofibrate when tolerating orals- has been on in the past - pain control, antiemetics - decrease IVF to 150 cc/hr - dilated pancreatic duct, outpatient EUS and follow-up with GI - water and ice chips only HLD - on crestor and fenofibrate on discharge - outpatient follow-up ENZO due to dehydration, resolved - avoid additional nephrotoxic agents - lisinopril resumed - IVF - repeat Cr in AM hypertensive urgency - Lisinopril resumed, IVF decreased - follow BP Sinusitis - flonase - outpatient follow-up Lactic acidosis, resolved Hypercalcemia due to dehydration, resolved DVT prophylaxis: Heparin Discussed with: patient, nursing Anticipated discharge: 1-[address]: home A total of 35 minutes was spent on the care of this complex patient more than 50% of the time was spent in counseling and care coordination.
[2019-12-31] MEDS: HYDROmorphone 1 MG/ML 1 ML SYRINGE IVP PRN ×7 (02:20→23:41)
[2019-12-31] MEDS: LACTATED RINGERS 1,000 ML IV SCH ×4 (02:22→20:38)
--- NOTE | 2019-12-31 07:32 | P.PN ---
Subjective Progress Note Date: 12/30/19 Principal diagnosis: Acute recurrent pancreatitis, history of heavy alcohol abuse Patient is seen lying in bed today still reporting some abdominal pain. No nausea or vomiting. She has tolerated liquid diet. Objective - Vital Signs Vital signs: Vital Signs Temp 98.6 F 12/30/19 07:00 Pulse 105 H 12/30/19 07:00 Resp 18 12/30/19 07:00 BP 165/101 12/30/19 07:00 Pulse Ox 96 12/30/19 07:00 Intake & Output 12/29/19 12/30/19 12/30/19 18:59 06:59 18:59 Intake Total 300 Balance 300 Weight 92.986 kg Intake: Intake, IV Titration 300 Amount Sodium Chloride 0.9% 1, 300 000 ml @ 150 mls/hr IV . Q6H40M [facility] Rx#:[id number] Other: Voiding Method Toilet Toilet Toilet # Voids 2 1 2 - Exam On physical examination, patient appears comfortable in no apparent distress. HEAD: Normocephalic, atraumatic. EYES: No scleral icterus. No conjunctival injection. MOUTH: No lesions, tongue midline. NECK: Trachea midline, no gross abnormalities. ABDOMEN: Soft, mildly tender to palpation. Bowel sounds are positive. No organomegaly. No guarding or rigidity. EXTREMITIES: No pedal edema. SKIN: No rashes, no jaundice. NEUROLOGIC: Alert and oriented x3. No focal deficits. - Labs CBC & Chem 7: 12/30/19 06:55 12/30/19 06:55 Labs: Abnormal Lab Results - Last 24 Hours (Table) 12/30/19 12/30/19 Range/Units 06:55 06:55 WBC 13.7 H (3.8-10.6) k/uL RBC 3.35 L (3.80-5.40) m/uL MCV 104.8 H (80.0-100.0) fL MCH 36.2 H (25.0-35.0) pg Sodium 134 L (137-145) mmol/L BUN 25 H (7-17) mg/dL Glucose 133 H (74-99) mg/dL Total Bilirubin 1.5 H (0.2-1.3) mg/dL Lipase 2485 H (23-300) U/L Microbiology - Last 24 Hours (Table) 12/28/19 20:55 Urine Culture - Final Urine,Voided Assessment and Plan (1) Acute pancreatitis Narrative/Plan: 49-year-old with a history of acute recurrent pancreatitis in the setting of prior heavy alcohol abuse. She reports decreasing her alcohol use over the past 2 years and stopping approximately one month ago. Patient was also noted to have elevated fasting triglycerides of 417 on presentation. Suspicion however is for recurrent acute pancreatitis in the setting of prior alcohol abuse. Imaging studies including ultrasound showed a dilated pancreatic duct but this appears stable compared to prior studies. Current Visit: Yes Status: Acute Code(s): K85.9 - ACUTE PANCREATITIS, UNSPECIFIED * DO NOT USE * SNOMED Code(s): 270119849 Plan: Supportive care Continue IV fluid hydration Continue pain control Would recommend outpatient follow-up a tertiary center for endoscopic ultrasound for further evaluation of the pancreas Clear liquid diet, advance as tolerated Thank you for allowing us dysphagia in the care of the patient, we will follow
[2019-12-31 07:35] LABS: HCT 33.3 % (34.0-46.0); HGB 11.6 gm/dL (11.4-16.0); MCH 36.7 pg (25.0-35.0); MCV 104.8 fL (80.0-100.0); Macrocytosis Slight; Mean Platelet Volume 7.6; Platelet Count 222 k/uL (150-450); RBC 3.17 m/uL (3.80-5.40); RDW 13.4 % (11.5-15.5); WBC 14.3 k/uL (3.8-10.6)
[2019-12-31] MEDS: PANTOPRAZOLE 40 MG/10 ML VIAL IVP SCH (07:47)
[2019-12-31] MEDS: LISINOPRIL 20 MG TAB PO SCH (07:48)
[2019-12-31] MEDS: HEPARIN SODIUM,PORCINE 5,000 UNIT/ML 1 ML VIAL SQ SCH ×3 (07:49→23:40)
[2019-12-31] MEDS: FLUTICASONE 50MCG/SPRAY NASAL 16GM EA NOSTRIL SCH (07:49)
[2019-12-31 08:06] LABS: ALT 19 U/L (4-34); AST 37 U/L (14-36); African American GFR (CKD) >90 (>60 ml/min/1.73 sqM); Albumin 3.7 g/dL (3.5-5.0); Alkaline Phosphatase 94 U/L (38-126); Anion Gap 12 mmol/L; Blood Urea Nitrogen 12 mg/dL (7-17); Calcium 9.6 mg/dL (8.4-10.2); Carbon Dioxide 27 mmol/L (22-30); Chloride 93 mmol/L (98-107); Glucose 142 mg/dL (74-99); Non-African American GFR(CKD) 89 (>60 ml/min/1.73 sqM); Potassium 3.2 mmol/L (3.5-5.1); Sodium 132 mmol/L (137-145); Total Bilirubin 4.4 mg/dL (0.2-1.3); Total Protein 6.6 g/dL (6.3-8.2)
[2019-12-31] MEDS: ALBUTEROL NEBULIZED 2.5 MG/3 ML INHALATION PRN ×2 (08:22→20:44)
[2019-12-31] MEDS ORDERED: Potassium Replacement Protocol 1 EACH MISC MISCELLANE PRN ×2 (13:15→13:38)
--- NOTE | 2019-12-31 13:20 | P.PN ---
Subjective Progress Note Date: 12/31/19 Principal diagnosis: Pancreatitis Patient was seen and examined. No acute events overnight. Patient reports epigastric discomfort that comes in waves. Pain is 6-10 out of 10 in severity. Patient states the Dilaudid only lasts for 1 hour. She denies any chest pain, shortness of breath or palpitations. No nausea or vomiting. No fever or chills. Tolerating clear liquid diet. Objective - Vital Signs Vital signs: Vital Signs Temp 98.6 F 12/31/19 07:15 Pulse 100 12/31/19 08:35 Resp 18 12/31/19 07:25 BP 181/112 12/31/19 07:15 Pulse Ox 100 12/31/19 07:15 Intake & Output 12/30/19 12/31/19 12/31/19 18:59 06:59 18:59 Intake Total 1350 Balance 1350 Intake: Intake, IV Titration 1350 Amount Lactated Ringers 1,000 ml 1350 @ 150 mls/hr IV .Q6H40M [facility] Rx#:[id number] Other: Voiding Method Toilet Toilet Toilet # Voids 2 3 - Exam General: [non toxic], [no distress], [appears at stated age] Derm: [warm], [dry] Head: [atraumatic], [normocephalic], [symmetric] Eyes: [EOMI], [no lid lag], [anicteric sclera] Mouth: [no lip lesion], [mucus membranes moist] Cardiovascular: [S1S2 reg], [tachycardic], [positive posterior tibial pulse bilateral], Lungs: [CTA bilateral], [no rhonchi, no rales] , [no accessory muscle use] Abdominal: [soft], [epigastric tenderness to palpation without rebound], [no guarding], [no appreciable organomegaly] Ext: [no gross muscle atrophy], [no edema], [no contractures] Neuro: [no focal neuro deficits] Psych: [Alert], [oriented], [appropriate affect] - Labs CBC & Chem 7: 12/31/19 07:04 12/31/19 07:04 Labs: Abnormal Lab Results - Last 24 Hours (Table) 12/31/19 12/31/19 Range/Units 07:04 07:04 WBC 14.3 H (3.8-10.6) k/uL RBC 3.17 L (3.80-5.40) m/uL Hct 33.3 L (34.0-46.0) % MCV 104.8 H (80.0-100.0) fL MCH 36.7 H (25.0-35.0) pg Sodium 132 L (137-145) mmol/L Potassium 3.2 L (3.5-5.1) mmol/L Chloride 93 L (98-107) mmol/L Glucose 142 H (74-99) mg/dL Total Bilirubin 4.4 H (0.2-1.3) mg/dL AST 37 H (14-36) U/L Microbiology - Last 24 Hours (Table) 12/28/19 20:55 Urine Culture - Final Urine,Voided Assessment and Plan Assessment: Acute recurrent pancreatitis Hypokalemia Dyslipidemia Hypertensive urgency Sinusitis Lactic acidosis, resolved Patient's pancreatic enzymes have been trending down. Her pancreatitis is likely related to hypertriglyceridemia. She is currently on clear liquid diet a nd made nothing by mouth for possible scope tomorrow. Continue lactated Ringer 750 mL/h. Pain control with Dilaudid as needed. Zofran for nausea or vomiting. Continue Protonix IV. Potassium of 3.4 will be replaced via protocol today. Patient with elevated triglyceride of 417. She would likely benefit from fenofibrate prior to discharge. Her acute kidney injury has resolved. Patient continues to be hypertensive with BP 181/112. This is likely related to pain. Her lisinopril will be continued and she will require better pain control. Javirejirossy is admitted for sinusitis. [Patient is pending clinical improvement. Likely DC in 1-2 days.]
[2019-12-31] MEDS: POTASSIUM CHLORIDE ER 20 MEQ TAB.ER PO SCH ×2 (14:02→15:00)
[2019-12-31] MEDS ORDERED: amLODIPine 5 MG TAB PO STA (16:33)
[2019-12-31] MEDS ORDERED: cloNIDine HCL 0.1 MG TAB PO STA (17:29)
[2019-12-31] MEDS ORDERED: HYDROmorphone 1 MG/ML 1 ML SYRINGE IVP STA (17:30)
--- NOTE | 2019-12-31 22:41 | P.PN ---
Subjective Progress Note Date: 12/31/19 Principal diagnosis: Acute recurrent pancreatitis, history of heavy alcohol abuse, elevated bilirubin Patient is seen lying in bed today still reporting some abdominal pain. No n ausea or vomiting. She has tolerated liquid diet. Objective - Vital Signs Vital signs: Vital Signs Temp 98.6 F 12/31/19 07:15 Pulse 100 12/31/19 08:35 Resp 18 12/31/19 07:25 BP 181/112 12/31/19 07:15 Pulse Ox 100 12/31/19 07:15 Intake & Output 12/30/19 12/31/19 12/31/19 18:59 06:59 18:59 Intake Total 1350 Balance 1350 Intake: Intake, IV Titration 1350 Amount Lactated Ringers 1,000 ml 1350 @ 150 mls/hr IV .Q6H40M [facility] Rx#:[id number] Other: Voiding Method Toilet Toilet Toilet # Voids 2 3 - Exam On physical examination, patient appears comfortable in no apparent distress. HEAD: Normocephalic, atraumatic. EYES: No scleral icterus. No conjunctival injection. MOUTH: No lesions, tongue midline. NECK: Trachea midline, no gross abnormalities. ABDOMEN: Soft, mildly tender to palpation. Bowel sounds are positive. No organomegaly. No guarding or rigidity. EXTREMITIES: No pedal edema. SKIN: No rashes, no jaundice. NEUROLOGIC: Alert and oriented x3. No focal deficits. - Labs CBC & Chem 7: 12/31/19 07:04 12/31/19 07:04 Labs: Abnormal Lab Results - Last 24 Hours (Table) 12/31/19 12/31/19 Range/Units 07:04 07:04 WBC 14.3 H (3.8-10.6) k/uL RBC 3.17 L (3.80-5.40) m/uL Hct 33.3 L (34.0-46.0) % MCV 104.8 H (80.0-100.0) fL MCH 36.7 H (25.0-35.0) pg Sodium 132 L (137-145) mmol/L Potassium 3.2 L (3.5-5.1) mmol/L Chloride 93 L (98-107) mmol/L Glucose 142 H (74-99) mg/dL Total Bilirubin 4.4 H (0.2-1.3) mg/dL AST 37 H (14-36) U/L Microbiology - Last 24 Hours (Table) 12/28/19 20:55 Urine Culture - Final Urine,Voided Assessment and Plan (1) Acute pancreatitis Narrative/Plan: 49-year-old with a history of acute recurrent pancreatitis in the setting of prior heavy alcohol abuse. She reports decreasing her alcohol use over the past 2 years and stopping approximately one month ago. Patient was also noted to have elevated fasting triglycerides of 417 on presentation. Suspicion however is for recurrent acute pancreatitis in the setting of prior alcohol abuse. Imaging studies including ultrasound showed a dilated pancreatic duct but this appears stable compared to prior studies. Current Visit: Yes Status: Acute Code(s): K85.9 - ACUTE PANCREATITIS, UNSPECIFIED * DO NOT USE * SNOMED Code(s): 227829533 (2) Elevated bilirubin Narrative/Plan: Patient seen today with acute rise in bilirubin up to 4.4 with persistence abdominal pain and in the setting of 1.2 cm dilated common bile duct suspicion is for choledocholithiasis and plan is to proceed to ERCP tomorrow. Current Visit: Yes Status: Acute Code(s): R17 - UNSPECIFIED JAUNDICE SNOMED Code(s): 73829125 Plan: Supportive care Continue IV fluid hydration Continue pain control Would recommend outpatient follow-up a tertiary center for endoscopic ultrasound for further evaluation of the pancreas Clear liquid diet, advance as tolerated Continue broad-spectrum antibiotic therapy Given acute elevation in bilirubin up to 4.4 today, dilated common bile duct and persistent abdominal pain suspicious for possible choledocholithiasis and plan is for ERCP tomorrow, with all the risks, benefits and side effects of both the planned treatment as well as the alternatives discussed with the patient at length with all of her questions answered to her satisfaction Thank you for allowing us to participate in the care of the patient we will continue to follow
[2020-01-01] MEDS: LACTATED RINGERS 1,000 ML IV SCH ×4 (03:13→21:25)
[2020-01-01] MEDS: HYDROmorphone 1 MG/ML 1 ML SYRINGE IVP PRN ×5 (03:15→21:27)
[2020-01-01] MEDS: LISINOPRIL 20 MG TAB PO SCH (07:36)
[2020-01-01] MEDS: HEPARIN SODIUM,PORCINE 5,000 UNIT/ML 1 ML VIAL SQ SCH ×2 (07:37→17:11)
[2020-01-01] MEDS: FLUTICASONE 50MCG/SPRAY NASAL 16GM EA NOSTRIL SCH (07:37)
[2020-01-01] MEDS ORDERED: LEVOFLOXACIN 500MG-D5W PMX 500 MG in DEXTROSE/WATER 1 100ML.BAG IVPB SCH ×2 (08:00→10:30)
[2020-01-01] MEDS ORDERED: INDOMETHACIN 50MG SUPPOSITORY RECTAL ONE ×3 (08:00→10:30)
[2020-01-01 08:24] LABS: Basophils % (A) 0 %; Eosinophils # (A) 0.2 k/uL (0-0.7); Eosinophils % (A) 2 %; HCT 32.8 % (34.0-46.0); HGB 11.4 gm/dL (11.4-16.0); Lymphocytes # (A) 1.2 k/uL (1.0-4.8); Lymphocytes % (A) 11 %; MCH 36.9 pg (25.0-35.0); MCHC 34.6 g/dL (31.0-37.0); MCV 106.6 fL (80.0-100.0); Macrocytosis Moderate; Mean Platelet Volume 7.6; Monocytes # (A) 0.7 k/uL (0-1.0); Monocytes % (A) 6 %; Neutrophils # (A) 8.6 k/uL (1.3-7.7); Neutrophils % (A) 80 %; Platelet Count 232 k/uL (150-450); RBC 3.08 m/uL (3.80-5.40); RDW 13.6 % (11.5-15.5); WBC 10.8 k/uL (3.8-10.6)
[2020-01-01 08:29] LABS: ALT 55 U/L (4-34); AST 91 U/L (14-36); African American GFR (CKD) >90 (>60 ml/min/1.73 sqM); Albumin 3.5 g/dL (3.5-5.0); Alkaline Phosphatase 111 U/L (38-126); Anion Gap 11 mmol/L; Blood Urea Nitrogen 4 mg/dL (7-17); Calcium 9.7 mg/dL (8.4-10.2); Carbon Dioxide 30 mmol/L (22-30); Chloride 92 mmol/L (98-107); Glucose 119 mg/dL (74-99); Non-African American GFR(CKD) 90 (>60 ml/min/1.73 sqM); Potassium 3.6 mmol/L (3.5-5.1); Sodium 133 mmol/L (137-145); Total Bilirubin 4.8 mg/dL (0.2-1.3); Total Protein 6.4 g/dL (6.3-8.2)
[2020-01-01] MEDS: amLODIPine 5 MG TAB PO SCH (08:36)
[2020-01-01] MEDS: PANTOPRAZOLE 40 MG/10 ML VIAL IVP SCH (10:12)
[2020-01-01] MEDS ORDERED: IV FLUID CONTINUATION 1,000 ML IV ONE (10:47)
[2020-01-01] MEDS ORDERED: methylPREDNISolone SOD SUCCI 125 MG/2 ML VIAL ONE (11:39)
[2020-01-01] MEDS ORDERED: fentaNYL (PF) 50 MCG/ML 2 ML AMP ONE (11:39)
[2020-01-01] MEDS ORDERED: MIDAZOLAM 2 MG/2 ML VIAL ONE (11:39)
[2020-01-01] MEDS ORDERED: LIDOCAINE 1% INJ 10MG/ML (20 ML MDV) ONE (11:39)
[2020-01-01] MEDS ORDERED: PROPOFOL 10 MG/ML 20 ML VIAL IV ONE (11:39)
[2020-01-01] MEDS ORDERED: diphenhydrAMINE 50 MG/ML 1 ML VIAL ONE (11:39)
[2020-01-01] MEDS ORDERED: SUCCINYLCHOLINE CHLORIDE 100 MG/5 ML SYR IV ONE (11:39)
[2020-01-01] MEDS ORDERED: LACTATED RINGERS 1,000 ML IV ONE (13:15)
--- NOTE | 2020-01-01 14:31 | FL ---
Fluoroscopy HISTORY: Pancreatitis 27 seconds fluoroscopy time supplied to the referring clinician. 1 intraoperative C-arm images docum ent the procedure. See dictated report from gastroenterology.
--- NOTE | 2020-01-01 14:58 | P.PCN ---
Date of Procedure: 01/01/20 Description of Procedure: Brief history: Patient is a pleasant 49-year-old female who presented to the hospital with complaints of abdominal pain and is being treated for acute uncomplicated pancreatitis. The patient was found to have common bile duct dilation at 1.2 cm and bilirubin was initially normal on presentation but trended up to 4.4 yesterday and 4.7 today. Patient also had associated transaminitis. ERCP was ordered due to suspicious for choledocholithiasis. Procedure performed: ERCP with failed/aborted Preoperative diagnoses: IV sedation per anesthesia: Estimated blood loss: Minimal. Procedure: After informed consent was obtained from the patient and after the risks b enefits and complications including bleeding perforation and pancreatitis explained in detail the patient was brought into the endoscopy unit. The patient was placed in prone position and IV conscious sedation was administered by anesthesia under continuous monitoring. The Olympus side-viewing duodenoscope was then inserted into the mouth and esophagus intubated without any difficulty. The scope was gradually advanced into the stomach and duodenum. The major papilla was identified without any difficulty. No bile flow was noted from the papilla. Numerous attempts were made to cannulate the common bile duct using a sphincterotome and a 0.035 inch wire which were unsuccessful. The pancreatic duct was able to be cannulated but not injected. At this time attempts were made to cannulate with an autotome and a 0.025 inch wire which were again unsuccessful. Likely secondary to a impacted distal CBD stone. The patient tolerated the procedure well, which was aborted due to unsuccessful cannulation. Impression: Failed aborted ERCP likely secondary to a distal CBD stone making cannulation of the bile duct difficult. Recommendations: The findings of this examination were discussed with the patient and the primary team. Okay for clear liquid diets. Continue to monitor CBC, CMP. Would recommend transfer to a tertiary referral to see an advanced endoscopist for definitive ERCP given rising bilirubin.
--- NOTE | 2020-01-01 16:07 | P.PN ---
Subjective Progress Note Date: 01/01/20 Principal diagnosis: Pancreatitis Patient was seen and examined. No acute events overnight. Patient seen after endoscopy. She complains of no abdominal pain. She denies any chest pain, shortness of breath or palpitations. No nausea or vomiting. No fever or chills. Tolerating clear liquid diet. Objective - Vital Signs Vital signs: Vital Signs Temp 98.6 F 01/01/20 14:20 Pulse 77 01/01/20 15:00 Resp 18 01/01/20 15:46 BP 144/89 01/01/20 15:00 Pulse Ox 99 01/01/20 15:00 Intake & Output 12/31/19 01/01/20 01/01/20 18:59 06:59 18:59 Intake Total 1700 Balance 1700 Weight 92.9 kg Intake: IV 1700 Other: Voiding Method Toilet Toilet - Exam General: [non toxic], [no distress], [appears at stated age] Derm: [warm], [dry] Head: [atraumatic], [normocephalic], [symmetric] Eyes: [EOMI], [no lid lag], [anicteric sclera] Mouth: [no lip lesion], [mucus membranes moist] Cardiovascular: [S1S2 reg], [tachycardic], [positive posterior tibial pulse bilateral], Lungs: [CTA bilateral], [no rhonchi, no rales] , [no accessory muscle use] Abdominal: [soft], [epigastric tenderness to palpation without rebound], [no guarding], [no appreciable organomegaly] Ext: [no gross muscle atrophy], [no edema], [no contractures] Neuro: [no focal neuro deficits] Psych: [Alert], [oriented], [appropriate affect] - Labs CBC & Chem 7: 01/01/20 08:04 01/01/20 08:04 Labs: Abnormal Lab Results - Last 24 Hours (Table) 01/01/20 01/01/20 Range/Units 08:04 08:04 WBC 10.8 H (3.8-10.6) k/uL RBC 3.08 L (3.80-5.40) m/uL Hct 32.8 L (34.0-46.0) % MCV 106.6 H (80.0-100.0) fL MCH 36.9 H (25.0-35.0) pg Neutrophils # 8.6 H (1.3-7.7) k/uL Sodium 133 L (137-145) mmol/L Chloride 92 L (98-107) mmol/L BUN 4 L (7-17) mg/dL Glucose 119 H (74-99) mg/dL Total Bilirubin 4.8 H (0.2-1.3) mg/dL AST 91 H (14-36) U/L ALT 55 H (4-34) U/L Assessment and Plan Assessment: Acute recurrent pancreatitis with elevated total bilirubin and liver enzymes Dyslipidemia Hypertensive urgency Sinusitis Lactic acidosis, resolved Given her elevation in total bilirubin and liver enzymes this is likely obstructive. Patient's pancreatic enzymes have been trending down. Her pancreatitis is likely related to hypertriglyceridemia. Endoscopy was attempted, unable to cannulate. Discussed with GI, recommends transfer to tertiary center. Discussed with [facility], accepted patient under surgery pending bed availability. Continue lactated Ringer 75 mL/h. Pain control with Dilaudid as needed. Zofran for nausea or vomiting. Continue Protonix IV. Patient with elevated triglyceride of 417. She would likely benefit from fenofibrate prior to discharge. Her acute kidney injury has resolved. Her hypokalemia has resolved. Blood pressure is better controlled at 144/89 today. This is likely related to pain. Her lisinopril will be continued and she will be started on amlodipine. Kuldip is admitted for sinusitis. [Patient is pending clinical improvement. Transfer to [facility].]
[2020-01-02] MEDS: HEPARIN SODIUM,PORCINE 5,000 UNIT/ML 1 ML VIAL SQ SCH ×3 (00:07→15:43)
[2020-01-02] MEDS: HYDROmorphone 1 MG/ML 1 ML SYRINGE IVP PRN ×3 (00:41→12:23)
[2020-01-02] MEDS: LACTATED RINGERS 1,000 ML IV SCH ×3 (08:33→23:47)
[2020-01-02] MEDS: LISINOPRIL 20 MG TAB PO SCH (08:36)
[2020-01-02] MEDS: amLODIPine 5 MG TAB PO SCH (08:36)
[2020-01-02] MEDS: PANTOPRAZOLE 40 MG/10 ML VIAL IVP SCH (08:36)
[2020-01-02] MEDS: FLUTICASONE 50MCG/SPRAY NASAL 16GM EA NOSTRIL SCH (08:37)
[2020-01-02] MEDS: ALBUTEROL NEBULIZED 2.5 MG/3 ML INHALATION PRN (09:21)
--- NOTE | 2020-01-02 13:02 | P.PN ---
Subjective Progress Note Date: 01/02/20 Principal diagnosis: Pancreatitis Patient was seen and examined. No acute events overnight. She denies any chest pain, shortness of breath or palpitations. No nausea or vomiting. No fever or chills. Tolerating clear liquid diet. Objective - Vital Signs Vital signs: Vital Signs Temp 98 F 01/02/20 07:55 Pulse 84 01/02/20 09:30 Resp 17 01/02/20 07:55 BP 131/83 01/02/20 07:55 Pulse Ox 93 L 01/02/20 07:55 Intake & Output 01/01/20 01/02/20 01/02/20 18:59 06:59 18:59 Intake Total 1700 360 Balance 1700 360 Weight 92.9 kg Intake: IV 1700 Oral 360 Other: Voiding Method Toilet Toilet # Voids 2 2 1 - Exam General: [non toxic], [no distress], [appears at stated age] Derm: [warm], [dry] Head: [atraumatic], [normocephalic], [symmetric] Eyes: [EOMI], [no lid lag], [anicteric sclera] Mouth: [no lip lesion], [mucus membranes moist] Cardiovascular: [S1S2 reg], [tachycardic], [positive DP pulse bilateral], Lungs: [CTA bilateral], [no rhonchi, no rales] , [no accessory muscle use] Abdominal: [soft], [epigastric tenderness to palpation without rebound], [no guarding], [no appreciable organomegaly] Ext: [no gross muscle atrophy], [no edema], [no contractures] Neuro: [no focal neuro deficits] Psych: [Alert], [oriented], [appropriate affect] - Labs CBC & Chem 7: 01/01/20 08:04 01/01/20 08:04 Assessment and Plan Assessment: Acute recurrent pancreatitis with elevated total bilirubin and liver enzymes Dyslipidemia Hypertensive urgency Sinusitis Lactic acidosis, resolved Given her elevation in total bilirubin and liver enzymes this is likely obstructive. Patient's pancreatic enzymes have been trending down. Her pancreatitis is likely related to hypertriglyceridemia and possibly stone given her dilated pancreatic duct. Endoscopy was attempted, unable to cannulate. Discussed with GI, recommends transfer to tertiary center. Discussed with [facility], accepted patient under surgery pending bed availability. Continue lactated Ringer 75 mL/h. Pain control with Dilaudid as needed. Zofran for nausea or vomiting. Continue Protonix IV. Patient with elevated triglyceride of 417. She would likely benefit from fenofibrate prior to disc harge. Her acute kidney injury has resolved. Her hypokalemia has resolved. Blood pressure is better controlled at 131/83 today. This is likely related to pain. Her lisinopril will be continued and she will be started on amlodipine. Kuldip is admitted for sinusitis. [Patient is pending clinical improvement. Transfer to [facility].]
[2020-01-02] MEDS: HYDROmorphone 2 MG/ML 1 ML SYRINGE IVP PRN ×2 (17:52→22:36)
[2020-01-02] MEDS ORDERED: diphenhydrAMINE 25 MG CAP PO STA (19:44)
[2020-01-03] MEDS: HEPARIN SODIUM,PORCINE 5,000 UNIT/ML 1 ML VIAL SQ SCH ×2 (00:30→08:06)
[2020-01-03] MEDS: LACTATED RINGERS 1,000 ML IV SCH (04:45)
[2020-01-03 07:57] LABS: ALT 64 U/L (4-34); AST 72 U/L (14-36); African American GFR (CKD) >90 (>60 ml/min/1.73 sqM); Albumin 2.9 g/dL (3.5-5.0); Alkaline Phosphatase 168 U/L (38-126); Anion Gap 7 mmol/L; Blood Urea Nitrogen 9 mg/dL (7-17); Calcium 8.4 mg/dL (8.4-10.2); Carbon Dioxide 31 mmol/L (22-30); Chloride 98 mmol/L (98-107); Glucose 100 mg/dL (74-99); Non-African American GFR(CKD) >90 (>60 ml/min/1.73 sqM); Sodium 136 mmol/L (137-145); Total Bilirubin 1.2 mg/dL (0.2-1.3); Total Protein 5.4 g/dL (6.3-8.2)
[2020-01-03] MEDS: PANTOPRAZOLE 40 MG/10 ML VIAL IVP SCH (08:04)
[2020-01-03] MEDS: HYDROmorphone 2 MG/ML 1 ML SYRINGE IVP PRN ×2 (08:05→15:40)
[2020-01-03] MEDS: amLODIPine 5 MG TAB PO SCH (08:05)
[2020-01-03] MEDS: LISINOPRIL 20 MG TAB PO SCH (08:05)
[2020-01-03] MEDS: FLUTICASONE 50MCG/SPRAY NASAL 16GM EA NOSTRIL SCH (08:07)
[2020-01-03 14:51] VITALS: BP 135/87; PULSE 111; RESP 18; TEMP 98.3
--- NOTE | 2020-01-03 15:42 | P.PN ---
Subjective Progress Note Date: 01/03/20 Principal diagnosis: Pancreatitis Patient was seen and examined. No acute events overnight. Complains epigastric discomfort radiating to the back. She denies any chest pain, shortness of breath or palpitations. No nausea or vomiting. No fever or chills. Tolerating clear liquid diet. Objective - Vital Signs Vital signs: Vital Signs Temp 98.3 F 01/03/20 14:09 Pulse 111 H 01/03/20 14:09 Resp 18 01/03/20 14:09 BP 135/87 01/03/20 14:09 Pulse Ox 97 01/03/20 14:09 Intake & Output 01/02/20 01/03/20 01/03/20 18:59 06:59 18:59 Intake Total 1380 Balance 1380 Weight 92.9 kg Intake: Intake, IV Titration 900 Amount Lactated Ringers 1,000 ml 900 @ 150 mls/hr IV .Q6H40M [facility] Rx#:[id number] Oral 480 Other: Voiding Method Toilet Toilet Toilet # Voids 1 1 - Exam General: [non toxic], [no distress], [appears at stated age] Derm: [warm], [dry] Head: [atraumatic], [normocephalic], [symmetric] Eyes: [EOMI], [no lid lag], [anicteric sclera] Mouth: [no lip lesion], [mucus membranes moist] Cardiovascular: [S1S2 reg], [tachycardic], [positive DP pulse bilateral], Lungs: [CTA bilateral], [no rhonchi, no rales] , [no accessory muscle use] Abdominal: [soft], [epigastric tenderness to palpation without rebound], [no guarding], [no appreciable organomegaly] Ext: [no gross muscle atrophy], [no edema], [no contractures] Neuro: [no focal neuro deficits] Psych: [Alert], [oriented], [appropriate affect] - Labs CBC & Chem 7: 01/01/20 08:04 01/03/20 07:07 Labs: Abnormal Lab Results - Last 24 Hours (Table) 01/03/20 Range/Units 07:07 Sodium 136 L (137-145) mmol/L Potassium 3.0 L (3.5-5.1) mmol/L Carbon Dioxide 31 H (22-30) mmol/L Glucose 100 H (74-99) mg/dL AST 72 H (14-36) U/L ALT 64 H (4-34) U/L Alkaline Phosphatase 168 H (38-126) U/L Total Protein 5.4 L (6.3-8.2) g/dL Albumin 2.9 L (3.5-5.0) g/dL Assessment and Plan Assessment: Acute recurrent pancreatitis with elevated total bilirubin and liver enzymes Hypokalemia Dyslipidemia Hypertensive urgency Sinusitis Lactic acidosis, resolved Given her elevation in total bilirubin and liver enzymes this is likely obstructive. Patient's pancreatic enzymes and transaminases have been trending down. Her pancreatitis is likely related to hypertriglyceridemia and possibly stone given her dilated pancreatic duct. Endoscopy was attempted, unable to cannulate. Discussed with GI, recommends transfer to tertiary center. Discussed with [facility], accepted patient, bed available, discussed with attending. Continue lactated Ringer 75 mL/h. Pain control with Dilaudid as needed. Zofran for nausea or vomiting. Continue Protonix IV. Patient with elevated triglyceride of 417. She would likely benefit from fenofibrate prior to discharge. Her acute kidney injury has resolved. Her potassium today is 3.0 which will be replaced via protocol. Blood pressure is better controlled at 13 5/87 today. This is likely related to pain. Her lisinopril will be continued and she will be started on amlodipine. Kuldip is admitted for sinusitis. [Patient is pending clinical improvement. Transfer to [facility].]
== END 2020-01-03 18:05 | disposition short-term general hospital (02) | DRG 439 ==
LOC: EC 19:37 → 4SSUR 21:54
PROVIDERS: ADMIT Internal Medicine; ATTEND Internal Medicine
PROC: 0FJD8ZZ Inspection of Pancreatic Duct, Via Natural or Artificial Opening Endoscopic (ICD-10-PCS; principal; 2020-01-01 11:30)
PROC: 0FJB8ZZ Inspection of Hepatobiliary Duct, Via Natural or Artificial Opening Endoscopic (ICD-10-PCS; principal; 2020-01-01 11:30)
DX: K85.80 Other acute pancreatitis without necrosis or infection (principal); N17.9 Acute kidney failure, unspecified; E87.2 Acidosis; K80.51 Calculus of bile duct without cholangitis or cholecystitis with obstruction; K86.1 Other chronic pancreatitis; K86.81 Exocrine pancreatic insufficiency; E83.52 Hypercalcemia; E78.1 Pure hyperglyceridemia; E87.6 Hypokalemia; I16.0 Hypertensive urgency; J32.9 Chronic sinusitis, unspecified; J45.909 Unspecified asthma, uncomplicated; E86.0 Dehydration; K21.9 Gastro-esophageal reflux disease without esophagitis; E78.5 Hyperlipidemia, unspecified; I10 Essential (primary) hypertension; M19.90 Unspecified osteoarthritis, unspecified site; F43.10 Post-traumatic stress disorder, unspecified; G56.01 Carpal tunnel syndrome, right upper limb; F10.11 Alcohol abuse, in remission; F17.290 Nicotine dependence, other tobacco product, uncomplicated; Z79.1 Long term (current) use of non-steroidal anti-inflammatories (NSAID); Z79.899 Other long term (current) drug therapy; Z98.890 Other specified postprocedural states; Z87.01 Personal history of pneumonia (recurrent); Z98.51 Tubal ligation status; Z91.013 Allergy to seafood; Z91.048 Other nonmedicinal substance allergy status; Z82.3 Family history of stroke; Z80.9 Family history of malignant neoplasm, unspecified; Z83.2 Family history of diseases of the blood and blood-forming organs and certain disorders involving the immune mechanism
CPT/HCPCS: 36415; 43260; 74330; 76705; 80048; 80053; 80061; 80306; 80320; 81001; 81025; 83605; 83690; 85025; 85027; 87086; 94640; 96361; 96374; 96375; 99285

== ENCOUNTER 2021-02-02 22:15 | Emergency (ER) | payer OTHER ==
[2021-02-02 23:11] VITALS: TEMP 98.2
[2021-02-02 23:51] LABS: Basophils # (A) 0.1 k/uL (0-0.2); Basophils % (A) 0 %; Eosinophils # (A) 0.7 k/uL (0-0.7); Eosinophils % (A) 5 %; HCT 35.8 % (34.0-46.0); HGB 12.7 gm/dL (11.4-16.0); Lymphocytes # (A) 1.5 k/uL (1.0-4.8); Lymphocytes % (A) 11 %; MCH 34.3 pg (25.0-35.0); MCHC 35.5 g/dL (31.0-37.0); MCV 96.6 fL (80.0-100.0); Mean Platelet Volume 7.3; Monocytes # (A) 0.4 k/uL (0-1.0); Monocytes % (A) 3 %; Neutrophils # (A) 11.5 k/uL (1.3-7.7); Neutrophils % (A) 81 %; Platelet Count 235 k/uL (150-450); RDW 13.8 % (11.5-15.5); WBC 14.2 k/uL (3.8-10.6)
[2021-02-03 00:07] LABS: ALT 15 U/L (4-34); AST 24 U/L (14-36); African American GFR (CKD) >90 (>60 ml/min/1.73 sqM); Albumin 5.1 g/dL (3.5-5.0); Alcohol <10 mg/dL; Alkaline Phosphatase 89 U/L (38-126); Amylase 174 U/L (30-110); Anion Gap 15 mmol/L; Blood Urea Nitrogen 13 mg/dL (7-17); Calcium 10.2 mg/dL (8.4-10.2); Carbon Dioxide 21 mmol/L (22-30); Chloride 103 mmol/L (98-107); Glucose 150 mg/dL (74-99); Non-African American GFR(CKD) >90 (>60 ml/min/1.73 sqM); Potassium 3.4 mmol/L (3.5-5.1); Sodium 139 mmol/L (137-145); Total Bilirubin 0.7 mg/dL (0.2-1.3)
[2021-02-03 00:51] LABS: Lipase 4717 U/L (23-300)
[2021-02-03] MEDS ORDERED: ONDANSETRON 4 MG/2 ML VIAL IVP STA (00:56)
[2021-02-03] MEDS ORDERED: HYDROmorphone 1 MG/ML 1 ML SYRINGE IVP STA ×2 (00:56→02:40)
[2021-02-03] MEDS ORDERED: SODIUM CHLORIDE 0.9% 1,000 ML IV STA (00:56)
--- NOTE | 2021-02-03 01:19 | ED ---
Abdominal Pain HPI - General Chief Complaint: Abdominal Pain Stated Complaint: pancreatitis Time Seen by Provider: 02/03/21 00:36 Source: patient, RN notes reviewed Mode of arrival: ambulatory Limitations: no limitations - History of Present Illness Initial Comments: Patient is a 50-year-old female that comes in complaining of pancreatitis. She notes that she does have a history of pancreatitis and this feels very similar. She noted that has been going on for proximal the past 2 hours. She noted that she has been nauseous and vomiting the entire time. She was in moderate distress and pain while laying in bed during exam and interview. She said the pain was a 10 out of 10 constant and felt like somebody was using her stomach as a balloon animal balloon. She denied any chest pain shortness of breath headache diarrhea constipation fever fatigue chills. - Related Data Home Medications Medication Instructions Recorded Confirmed Pantoprazole Sodium [Protonix] 40 mg PO DAILY 05/14/15 12/29/19 Albuterol Inhaler (Mhu) [Ventolin 2 puff INHALATION Q4-6H PRN 12/28/19 12/29/19 Hfa Inhaler (Mhu)] Cyclobenzaprine HCl 10 mg PO HS PRN 12/28/19 12/29/19 Levocetirizine Dihydrochloride 5 mg PO DAILY 12/28/19 12/29/19 [Xyzal] Meloxicam [Mobic] 15 mg PO DAILY 12/28/19 12/29/19 Methylphenidate HCl 54 mg PO DAILY PRN 12/28/19 12/29/19 [Methylphenidate HCl ER] Rosuvastatin Calcium [Crestor] 20 mg PO DAILY 12/28/19 12/29/19 Triamcinolone Acetonide [Nasacort] 2 sprays EA NOSTRIL DAILY 12/28/19 12/29/19 Ubidecarenone [Coenzyme Q10] 100 mg PO BID 12/28/19 12/29/19 lisinopriL [Zestril] 20 mg PO DAILY 12/28/19 12/29/19 Previous Rx's Medication Instructions Recorded HYDROcodone/APAP 5-325MG [[place] 1 tab PO Q4HR PRN 3 Days #18 tab 02/03/21 5-325] Allergies Allergy/AdvReac Type Severity Reaction Status Date / Time nickel AdvReac Swelling Verified 02/02/21 23:11 seafood AdvReac Swelling Uncoded 02/02/21 23:11 Review of Systems ROS Statement: Those systems with pertinent positive or pertinent negative responses have been documented in the HPI. ROS Other: All systems not noted in ROS Statement are negative. Past Medical History Past Medical History: GERD/Reflux, Hyperlipidemia, Hypertension, Memory Impairment, Osteoarthritis (OA) Additional Past Medical History / Comment(s): PTSD, PANCREATITIS, RT CARPAL TUNNEL QUIT CIGARETTES BUT NOW SMOKES E CIG, PT STATED HAD A PNEUMONIA VACCINE IN PAST BUT BOWEN'NT KNOW FOR SURE WHEN. History of Any Multi-Drug Resistant Organisms: None Reported Past Surgical History: Orthopedic Surgery, Tubal Ligation, Uterine Ablation Additional Past Surgical History / Comment(s): stitches left thumb yrs ago. left total kneee. Past Anesthesia/Blood Transfusion Reactions: No Reported Reaction Past Psychological History: PTSD Smoking Status: Current every day smoker Past Alcohol Use History: Occasional Past Drug Use History: None Reported - Past Family History Father Family Medical History: CVA/TIA, Deep Vein Thrombosis (DVT) Additional Family Medical History / Comment(s): mom's side had cancer Mother Family Medical History: Cancer Additional Family Medical History / Comment(s): METASTATIC CANCER General Exam Limitations: no limitations General appearance: alert, in distress (Moderate due to pain) Head exam: Present: atraumatic, normocephalic, normal inspection Eye exam: Present: normal appearance, PERRL, EOMI. Absent: scleral icterus, conjunctival injection, periorbital swelling Neck exam: Present: normal inspection. Absent: tenderness, meningismus, lymphadenopathy Respiratory exam: Present: normal lung sounds bilaterally. Absent: respiratory distress, wheezes, rales, rhonchi, stridor Cardiovascular Exam: Present: regular rate, normal rhythm, normal heart sounds. Absent: systolic murmur, diastolic murmur, rubs, gallop, clicks GI/Abdominal exam: Present: soft, normal bowel sounds. Absent: distended, tenderness, guarding, rebound, rigid Extremities exam: Present: normal inspection, full ROM, normal capillary refill. Absent: tenderness, pedal edema, joint swelling, calf tenderness Neurological exam: Present: alert, oriented X3, CN II-XII intact Psychiatric exam: Present: normal affect, normal mood Skin exam: Present: warm, dry, intact, normal color. Absent: rash Course Vital Signs 02/02/21 02/03/21 23:09 01:28 Temperature 98.2 F Pulse Rate 125 H 89 Respiratory 22 18 Rate Blood Pressure 152/98 169/96 O2 Sat by Pulse 98 98 Oximetry Medical Decision Making - Medical Decision Making 50-year-old female complaining of pancreatitis. Labs, 1 L normal saline, 1 mg of Dilaudid, 4 mg of Zofran ordered. Labs: White blood cells 14.2, amylase 174, lipase 4717. Patient feels comfortable discharging home with some pain medication and bowel rest. Patient stated that she was pain medication before leaving. Case discussed with Dr. Mccoy, patient can discharge home. - Lab Data Result diagrams: 02/02/21 23:21 02/02/21 23:21 Lab Results 02/02/21 02/02/21 Range/Units 23:21 23:21 WBC 14.2 H (3.8-10.6) k/uL RBC 3.70 L (3.80-5.40) m/uL Hgb 12.7 (11.4-16.0) gm/dL Hct 35.8 (34.0-46.0) % MCV 96.6 (80.0-100.0) fL MCH 34.3 (25.0-35.0) pg MCHC 35.5 (31.0-37.0) g/dL RDW 13.8 (11.5-15.5) % Plt Count 235 (150-450) k/uL MPV 7.3 Neutrophils % 81 % Lymphocytes % 11 % Monocytes % 3 % Eosinophils % 5 % Basophils % 0 % Neutrophils # 11.5 H (1.3-7.7) k/uL Lymphocytes # 1.5 (1.0-4.8) k/uL Monocytes # 0.4 (0-1.0) k/uL Eosinophils # 0.7 (0-0.7) k/uL Basophils # 0.1 (0-0.2) k/uL Sodium 139 (137-145) mmol/L Potassium 3.4 L (3.5-5.1) mmol/L Chloride 103 (98-107) mmol/L Carbon Dioxide 21 L (22-30) mmol/L Anion Gap 15 mmol/L BUN 13 (7-17) mg/dL Creatinine 0.68 (0.52-1.04) mg/dL Est GFR (CKD-EPI)AfAm >90 (>60 ml/min/1.73 sqM) Est GFR (CKD-EPI)NonAf >90 (>60 ml/min/1.73 sqM) Glucose 150 H (74-99) mg/dL Calcium 10.2 (8.4-10.2) mg/dL Total Bilirubin 0.7 (0.2-1.3) mg/dL AST 24 (14-36) U/L ALT 15 (4-34) U/L Alkaline Phosphatase 89 (38-126) U/L Total Protein 8.0 (6.3-8.2) g/dL Albumin 5.1 H (3.5-5.0) g/dL Amylase 174 H (30-110) U/L Lipase 4717 H (23-300) U/L Serum Alcohol <10 mg/dL Disposition Clinical Impression: Acute pancreatitis Disposition: HOME SELF-CARE Condition: Stable Instructions (If sedation given, give patient instructions): Pancreatitis (ED) Additional Instructions: Please return to the Emergency Department if symptoms worsen or any other concerns. Follow-up with primary care in 3-5 days. Do not eat anything by mouth for 24 hours, increase oral fluid intake s ignificantly. This is because pancreatitis is treated with bowel rest and fluids and pain management. [facility] 5/325 pharmacy, three-day supply take as prescribed. Avoid alcohol as it can cause worsening pancreatitis flareups. Prescriptions: HYDROcodone/APAP 5-325MG [[place] 5-325] 1 tab PO Q4HR PRN 3 Days #18 tab PRN Reason: Pain Is patient prescribed a controlled substance at d/c from ED?: Yes When asked, does pt state using other controlled substances?: No If prescribed controlled substance>3 days was MAPS reviewed?: Prescribed <3 Days If opioid is for acute pain is fill amount 7 days or less?: Yes Referrals: Ailyn Mendoza MD [Primary Care Provider] - 1-2 days Time of Disposition: 02:44
[2021-02-03 01:28] VITALS: RESP 18
--- NOTE | 2021-02-03 02:50 | ED ---
Medical Decision Making - Lab Data Result diagrams: 02/02/21 23:21 02/02/21 23:21 Lab Results 02/02/21 02/02/21 Range/Units 23:21 23:21 WBC 14.2 H (3.8-10.6) k/uL RBC 3.70 L (3.80-5.40) m/uL Hgb 12.7 (11.4-16.0) gm/dL Hct 35.8 (34.0-46.0) % MCV 96.6 (80.0-100.0) fL MCH 34.3 (25.0-35.0) pg MCHC 35.5 (31.0-37.0) g/dL RDW 13.8 (11.5-15.5) % Plt Count 235 (150-450) k/uL MPV 7.3 Neutrophils % 81 % Lymphocytes % 11 % Monocytes % 3 % Eosinophils % 5 % Basophils % 0 % Neutrophils # 11.5 H (1.3-7.7) k/uL Lymphocytes # 1.5 (1.0-4.8) k/uL Monocytes # 0.4 (0-1.0) k/uL Eosinophils # 0.7 (0-0.7) k/uL Basophils # 0.1 (0-0.2) k/uL Sodium 139 (137-145) mmol/L Potassium 3.4 L (3.5-5.1) mmol/L Chloride 103 (98-107) mmol/L Carbon Dioxide 21 L (22-30) mmol/L Anion Gap 15 mmol/L BUN 13 (7-17) mg/dL Creatinine 0.68 (0.52-1.04) mg/dL Est GFR (CKD-EPI)AfAm >90 (>60 ml/min/1.73 sqM) Est GFR (CKD-EPI)NonAf >90 (>60 ml/min/1.73 sqM) Glucose 150 H (74-99) mg/dL Calcium 10.2 (8.4-10.2) mg/dL Total Bilirubin 0.7 (0.2-1.3) mg/dL AST 24 (14-36) U/L ALT 15 (4-34) U/L Alkaline Phosphatase 89 (38-126) U/L Total Protein 8.0 (6.3-8.2) g/dL Albumin 5.1 H (3.5-5.0) g/dL Amylase 174 H (30-110) U/L Lipase 4717 H (23-300) U/L Serum Alcohol <10 mg/dL Disposition Clinical Impression: Acute pancreatitis Disposition: HOME SELF-CARE Condition: Stable Instructions (If sedation given, give patient instructions): Pancreatitis (ED) Additional Instructions: Please return to the Emergency Department if symptoms worsen or any other concerns. Follow-up with primary care in 3-5 days. Do not eat anything by mouth for 24 hours, increase oral fluid intake significantly. This is because pancreatitis is treated with bowel rest and fluids and pain management. [facility] 5/325 pharmacy, three-day supply take as prescribed. Avoid alcohol as it can cause worsening pancreatitis flareups. Prescriptions: HYDROcodone/APAP 5-325MG [[place] 5-325] 1 tab PO Q4HR PRN 3 Days #18 tab PRN Reason: Pain Is patient prescribed a controlled substance at d/c from ED?: Yes When asked, does pt state using other controlled substances?: No If prescribed controlled substance>3 days was MAPS reviewed?: Prescribed <3 Days If opioid is for acute pain is fill amount 7 days or less?: No If Rx opioid, was Start Talking consent form obtained?: Yes Referrals: Ailyn Mendoza MD [Primary Care Provider] - 1-2 days
[2021-02-03 02:57] VITALS: BP 137/87; PULSE 82
[2021-02-03 03:19] LABS: Appearance,Urine Clear (Clear); Bilirubin,Urine Negative (Negative); Blood,Urine Negative (Negative); Color,Urine Yellow; Glucose,Urine (UA) Negative (Negative); Ketones,Urine 1+ (Negative); Leukocyte Esterase,Urine Moderate (Negative); Mucus,Urine Rare /hpf; Nitrite,Urine Negative (Negative); PH, Urine 5.5 (5.0-8.0); Protein,Urine Trace (Negative); Specific Gravity,Urine 1.027 (1.001-1.035); Squamous Epithelial Cell,Urine 1 /hpf (0-4); Urobilinogen,Urine <2.0 mg/dL (<2.0); WBC,Urine 2 /hpf (0-5)
== END 2021-02-03 02:58 | disposition home or self-care (01) ==
LOC: EC 22:15
DX: K85.90 Acute pancreatitis without necrosis or infection, unspecified (principal); K21.9 Gastro-esophageal reflux disease without esophagitis; E78.5 Hyperlipidemia, unspecified; I10 Essential (primary) hypertension; M19.90 Unspecified osteoarthritis, unspecified site; F43.10 Post-traumatic stress disorder, unspecified; F17.290 Nicotine dependence, other tobacco product, uncomplicated; Z79.1 Long term (current) use of non-steroidal anti-inflammatories (NSAID); Z79.899 Other long term (current) drug therapy; Z91.048 Other nonmedicinal substance allergy status; Z91.013 Allergy to seafood
CPT/HCPCS: 36415; 80053; 82150; 83690; 85025; 81001; 80320; 99284; 96374; 96375 ×2; 96361; J2405; J1170

== ENCOUNTER 2023-12-23 16:15 | Emergency (ER) | payer OTHER ==
[2023-12-23 16:31] VITALS: RESP 18
--- NOTE | 2023-12-23 16:50 | ED ---
Abdominal Pain HPI - General Chief Complaint: Abdominal Pain Stated Complaint: ABD pain Source: patient, EMS, RN notes reviewed Mode of arrival: EMS - History of Present Illness Initial Comments: 53-year-old female with a history of gallstone pancreatitis who states she has had upper abdominal pain especially right upper quadrant pain for the last 4 days sharp in nature 10/10 in severity with nausea vomiting but no diarrhea. She states she has had constipation for the last week and a half. No change in skin color no fevers chills or sweats she believes she has the same thing going on again which is in the past she has had gallstones was plugged up the common bile duct and cause pancreatitis. She did get fentanyl in the ambulance on the way here the pain is down from 10 to a 2/10 in severity. Currently not nauseated no other current complaints MD Complaint: abdominal pain - Related Data Home Medications Medication Instructions Recorded Confirmed Pantoprazole Sodium [Protonix] 40 mg PO DAILY 05/14/15 12/29/19 Albuterol Inhaler [Ventolin Hfa 2 puff INHALATION Q4-6H PRN 12/28/19 12/29/19 Inhaler] Cyclobenzaprine HCl 10 mg PO HS PRN 12/28/19 12/29/19 Levocetirizine Dihydrochloride 5 mg PO DAILY 12/28/19 12/29/19 [Xyzal] Meloxicam [Mobic] 15 mg PO DAILY 12/28/19 12/29/19 Methylphenidate HCl 54 mg PO DAILY PRN 12/28/19 12/29/19 [Methylphenidate HCl ER] Rosuvastatin Calcium [Crestor] 20 mg PO DAILY 12/28/19 12/29/19 Triamcinolone Acetonide [Nasacort] 2 sprays EA NOSTRIL DAILY 12/28/19 12/29/19 Ubidecarenone [Coenzyme Q10] 100 mg PO BID 12/28/19 12/29/19 lisinopriL [Zestril] 20 mg PO DAILY 12/28/19 12/29/19 Previous Rx's Medication Instructions Recorded HYDROcodone/APAP 5-325MG [[place] 1 tab PO Q4HR PRN 3 Days #18 tab 02/03/21 5-325] HYDROcodone/APAP 7.5-325MG [[place] 1 tab PO Q6HR PRN 3 Days #12 tab 12/23/23 7.5-325] Ondansetron Odt [Zofran Odt] 4 mg PO Q8HR PRN #12 tab 12/23/23 Allergies Allergy/AdvReac Type Severity Reaction Status Date / Time Iodinated Contrast Media AdvReac Itching Verified 12/23/23 16:23 nickel AdvReac Swelling Verified 12/23/23 16:22 seafood AdvReac Swelling Uncoded 12/23/23 16:22 Review of Systems ROS Statement: Those systems with pertinent positive or pertinent negative responses have been documented in the HPI. ROS Other: All systems not noted in ROS Statement are negative. Past Medical History Past Medical History: GERD/Reflux, Hyperlipidemia, Hypertension, Memory Impairment, Osteoarthritis (OA) Additional Past Medical History / Comment(s): PTSD, PANCREATITIS, RT CARPAL TUNNEL QUIT CIGARETTES BUT NOW SMOKES E CIG, PT STATED HAD A PNEUMONIA VACCINE IN PAST BUT BOWEN'NT KNOW FOR SURE WHEN. History of Any Multi-Drug Resistant Organisms: None Reported Past Surgical History: Orthopedic Surgery, Tubal Ligation, Uterine Ablation Additional Past Surgical History / Comment(s): stitches left thumb yrs ago. left total kneee. Past Anesthesia/Blood Transfusion Reactions: No Reported Reaction Past Psychological History: PTSD Smoking Status: Current every day smoker Past Alcohol Use History: Occasional Past Drug Use History: None Reported - Past Family History Father Family Medical History: CVA/TIA, Deep Vein Thrombosis (DVT) Additional Family Medical History / Comment(s): mom's side had cancer Mother Family Medical History: Cancer Additional Family Medical History / Comment(s): METASTATIC CANCER General Exam - General Exam Comments Initial Comments: This is a well-developed well-nourished awake alert oriented x 4 female General appearance: alert, in no apparent distress Head exam: Present: atraumatic, normocephalic, normal inspection Eye exam: Present: normal appearance, PERRL, EOMI. Absent: scleral icterus, conjunctival injection, periorbital swelling ENT exam: Present: mucous membranes dry Neck exam: Present: normal inspection, full ROM. Absent: tenderness, meningismus, lymphadenopathy Respiratory exam: Present: normal lung sounds bilaterally. Absent: respiratory distress, wheezes, rales, rhonchi, stridor Cardiovascular Exam: Present: regular rate, normal rhythm, normal heart sounds. Absent: systolic murmur, diastolic murmur, rubs, gallop, clicks GI/Abdominal exam: Present: soft, tenderness (Right upper quadrant tenderness palpation no overt guarding or rebound at this time no pulsatile masses), normal bowel sounds. Absent: distended, guarding, rebound, rigid Rectal exam: Present: deferred Extremities exam: Present: normal inspection, full ROM, normal capillary refill. Absent: tenderness, pedal edema, joint swelling, calf tenderness Back exam: Present: normal inspection Neurological exam: Present: alert, oriented X3, CN II-XII intact Psychiatric exam: Present: normal affect, normal mood Skin exam: Present: warm, dry, intact, normal color. Absent: rash Course Vital Signs 12/23/23 12/23/23 16:17 18:38 Temperature 98.3 F 98.1 F Pulse Rate 87 88 Respiratory 18 18 Rate Blood Pressure 119/79 111/75 O2 Sat by Pulse 96 97 Oximetry Medical Decision Making - Medical Decision Making Patient is feeling much improved at this time I did discuss the findings with her the ultrasound of the right upper quadrant reveals some dilation of the ducts which are consistent with previous studies with no evidence of any gallstones or duct obstruction. The presentation is likely secondary to biliary colic, acute. Patient will be discharged she does have follow-up with her doctor this coming week. She will be given a prescription for [place] 7.5 #12. In addition of this Zofran. Return parameters discussed. Your doctor is out of [facility]. Was pt. sent in by a medical professional or institution (, PA, GRAIN SHOVELER, urgent care, hospital, or care home...) When possible be specific @ -No Did you speak to anyone other than the patient for history (EMS, parent, family, police, friend...)? What history was obtained from this source @ -No Did you review nursing and triage notes (agree or disagree)? Why? @ -I reviewed and agree with nursing and triage notes Were old charts reviewed (outside hosp., previous admission, EMS record, old EKG, old radiological studies, urgent care reports/EKG's, care home records)? Report findings @ -Old charts were reviewed Differential Diagnosis (chest pain, altered mental status, abdominal pain women, abdominal pain men, vaginal bleeding, weakness, fever, dyspnea, syncope, headache, dizziness, GI bleed, back pain, seizure, CVA, palpatations, mental health, musculoskeletal)? @ -Abdominal pain, biliary colic EKG interpreted by me (3pts min.). @ -As above EKG interpreted by me sinus rhythm at 89 parable 142 QRS ration 101 QT/QTc 360 eerie/410 nonspecific T wave configuration X-rays interpreted by me (1pt min.). @ -KUB interpreted by me no acute process CT interpreted by me (1pt min.). @ -None done U/S interpreted by me (1pt. min.). @ -Ultrasound interpreted by me no acute dilatation no evidence of gallstones or ductal stones. What testing was considered but not performed or refused? (CT, X-rays, U/S, labs)? Why? @ -None What meds were considered but not given or refused? Why? @ -None Did you discuss the management of the patient with other professionals (professionals i.e. DrBola, PA, GRAIN SHOVELER, lab, RT, psych nurse, clinical social work therapist, liner roll changer, teacher, equal employment opportunity officer, casework specialist)? Give summary @ -No Was smoking cessation discussed for >3mins.? @ -No Was critical care preformed (if so, how long)? @ -No Were there social determinants of health that impacted care today? How? (Homelessness, low income, unemployed, alcoholism, drug addiction, transportat ion, low edu. Level, literacy, decrease access to med. care, long term, rehab)? @ -No Was there de-escalation of care discussed even if they declined (Discuss DNR or withdrawal of care, Hospice)? DNR status @ -No What co-morbidities impacted this encounter? (DM, HTN, Smoking, COPD, CAD, Cancer, CVA, ARF, Chemo, Hep., AIDS, mental health diagnosis, sleep apnea, morbid obesity)? @ -Gallstones, history of pancreatitis Was patient admitted / discharged? Hospital course, mention meds given and route, prescriptions, significant lab abnormalities, going to OR and other pertinent info. @ -Hospital course and was discharged with follow-up with her doctor. Undiagnosed new problem with uncertain prognosis? @ -No Drug Therapy requiring intensive monitoring for toxicity (Heparin, Nitro, Insulin, Cardizem)? @ -No Were any procedures done? @ -No Diagnosis/symptom? @ -Acute biliary colic, abdominal pain, elevated lipase, elevated LFTs Acute, or Chronic, or Acute on Chronic? @ -Acute on chronic Uncomplicated (without systemic symptoms) or Complicated (systemic symptoms)? @ -Default Side effects of treatment? @ -No Exacerbation, Progression, or Severe Exacerbation? @ -No Poses a threat to life or bodily function? How? (Chest pain, USA, CA, pneumonia, PE, COPD, DKA, ARF, appy, cholecystitis, CVA, Diverticulitis, Homicidal, Suicidal, threat to staff... and all critical care pts) @ -No - Lab Data Result diagrams: 12/23/23 16:41 12/23/23 16:41 Lab Results 12/23/23 12/23/23 12/23/23 Range/Units 16:41 16:41 16:41 WBC 17.9 H (3.8-10.6) k/uL RBC 3.99 (3.80-5.40) m/uL Hgb 13.1 (11.4-16.0) gm/dL Hct 37.3 (34.0-46.0) % MCV 93.6 (80.0-100.0) fL MCH 32.9 (25.0-35.0) pg MCHC 35.1 (31.0-37.0) g/dL RDW 13.7 (11.5-15.5) % Plt Count 311 (150-450) k/uL MPV 8.1 Neutrophils % 86 % Lymphocytes % 7 % Monocytes % 4 % Eosinophils % 1 % Basophils % 0 % Neutrophils # 15.5 H (1.3-7.7) k/uL Lymphocytes # 1.3 (1.0-4.8) k/uL Monocytes # 0.8 (0-1.0) k/uL Eosinophils # 0.2 (0-0.7) k/uL Basophils # 0.0 (0-0.2) k/uL Sodium 134 L (137-145) mmol/L Potassium 3.6 (3.5-5.1) mmol/L Chloride 101 (98-107) mmol/L Carbon Dioxide 22 (22-30) mmol/L Anion Gap 11 mmol/L BUN 12 (7-17) mg/dL Creatinine 0.61 (0.52-1.04) mg/dL Est GFR (CKD-EPI)AfAm >90 (>60 ml/min/1.73 sqM) Est GFR (CKD-EPI)NonAf >90 (>60 ml/min/1.73 sqM) Glucose 183 H (74-99) mg/dL Plasma Lactic Acid Victor M 1.1 (0.7-2.0) mmol/L Calcium 9.4 (8.4-10.2) mg/dL Magnesium 1.8 (1.6-2.3) mg/dL Total Bilirubin 0.8 (0.2-1.3) mg/dL AST 50 H (14-36) U/L ALT 77 H (4-34) U/L Alkaline Phosphatase 173 H (38-126) U/L Troponin I (0.000-0.034) ng/mL Total Protein 7.2 (6.3-8.2) g/dL Albumin 4.4 (3.5-5.0) g/dL Amylase 56 (30-110) U/L Lipase 509 H (23-300) U/L Urine Color Urine Appearance (Clear) Urine pH (5.0-8.0) Ur Specific [place] (1.001-1.035) Urine Protein (Negative) Urine Glucose (UA) (Negative) Urine Ketones (Negative) Urine Blood (Negative) Urine Nitrite (Negative) Urine Bilirubin (Negative) Urine Urobilinogen (<2.0) mg/dL Ur Leukocyte Esterase (Negative) Urine RBC (0-5) /hpf Urine WBC (0-5) /hpf Ur Squamous Epith Cells (0-4) /hpf Urine Mucus (None) /hpf 12/23/23 12/23/23 Range/Units 16:41 17:31 WBC (3.8-10.6) k/uL RBC (3.80-5.40) m/uL Hgb (11.4-16.0) gm/dL Hct (34.0-46.0) % MCV (80.0-100.0) fL MCH (25.0-35.0) pg MCHC (31.0-37.0) g/dL RDW (11.5-15.5) % Plt Count (150-450) k/uL MPV Neutrophils % % Lymphocytes % % Monocytes % % Eosinophils % % Basophils % % Neutrophils # (1.3-7.7) k/uL Lymphocytes # (1.0-4.8) k/uL Monocytes # (0-1.0) k/uL Eosinophils # (0-0.7) k/uL Basophils # (0-0.2) k/uL Sodium (137-145) mmol/L Potassium (3.5-5.1) mmol/L Chloride (98-107) mmol/L Carbon Dioxide (22-30) mmol/L Anion Gap mmol/L BUN (7-17) mg/dL Creatinine (0.52-1.04) mg/dL Est GFR (CKD-EPI)AfAm (>60 ml/min/1.73 sqM) Est GFR (CKD-EPI)NonAf (>60 ml/min/1.73 sqM) Glucose (74-99) mg/dL Plasma Lactic Acid Victor M (0.7-2.0) mmol/L Calcium (8.4-10.2) mg/dL Magnesium (1.6-2.3) mg/dL Total Bilirubin (0.2-1.3) mg/dL AST (14-36) U/L ALT (4-34) U/L Alkaline Phosphatase (38-126) U/L Troponin I <0.012 (0.000-0.034) ng/mL Total Protein (6.3-8.2) g/dL Albumin (3.5-5.0) g/dL Amylase (30-110) U/L Lipase (23-300) U/L Urine Color Yellow Urine Appearance Clear (Clear) Urine pH 5.5 (5.0-8.0) Ur Specific [place] 1.011 (1.001-1.035) Urine Protein Trace H (Negative) Urine Glucose (UA) Negative (Negative) Urine Ketones Trace H (Negative) Urine Blood Trace H (Negative) Urine Nitrite Negative (Negative) Urine Bilirubin Negative (Negative) Urine Urobilinogen <2.0 (<2.0) mg/dL Ur Leukocyte Esterase Negative (Negative) Urine RBC <1 (0-5) /hpf Urine WBC 2 (0-5) /hpf Ur Squamous Epith Cells 1 (0-4) /hpf Urine Mucus Few H (None) /hpf Disposition Clinical Impression: Biliary colic, Abdominal pain, Elevated lipase, Elevated LFTs Disposition: HOME SELF-CARE Condition: Good Instructions (If sedation given, give patient instructions): Abdominal Pain (ED), Biliary Colic (ED) Prescriptions: HYDROcodone/APAP 7.5-325MG [[place] 7.5-325] 1 tab PO Q6HR PRN 3 Days #12 tab PRN Reason: Pain Ondansetron Odt [Zofran Odt] 4 mg PO Q8HR PRN #12 tab PRN Reason: Nausea Is patient prescribed a controlled substance at d/c from ED?: Yes When asked, does pt state using other controlled substances?: Yes If prescribed controlled substance>3 days was MAPS reviewed?: Prescribed <3 Days If opioid is for acute pain is fill amount 7 days or less?: Yes If Rx opioid, was Start Talking consent form obtained?: Yes Referrals: Harrison Mendoza MD [Primary Care Provider] - 1-2 days Decision Date: 12/23/23 Decision Time: 18:59
[2023-12-23 16:57] LABS: Basophils % (A) 0 %; Eosinophils # (A) 0.2 k/uL (0-0.7); Eosinophils % (A) 1 %; HCT 37.3 % (34.0-46.0); HGB 13.1 gm/dL (11.4-16.0); Lymphocytes # (A) 1.3 k/uL (1.0-4.8); Lymphocytes % (A) 7 %; MCH 32.9 pg (25.0-35.0); MCHC 35.1 g/dL (31.0-37.0); MCV 93.6 fL (80.0-100.0); Mean Platelet Volume 8.1; Monocytes # (A) 0.8 k/uL (0-1.0); Monocytes % (A) 4 %; Neutrophils # (A) 15.5 k/uL (1.3-7.7); Neutrophils % (A) 86 %; Platelet Count 311 k/uL (150-450); RBC 3.99 m/uL (3.80-5.40); RDW 13.7 % (11.5-15.5); WBC 17.9 k/uL (3.8-10.6)
[2023-12-23 17:10] LABS: ALT 77 U/L (4-34); AST 50 U/L (14-36); African American GFR (CKD) >90 (>60 ml/min/1.73 sqM); Albumin 4.4 g/dL (3.5-5.0); Alkaline Phosphatase 173 U/L (38-126); Amylase 56 U/L (30-110); Anion Gap 11 mmol/L; Blood Urea Nitrogen 12 mg/dL (7-17); Calcium 9.4 mg/dL (8.4-10.2); Carbon Dioxide 22 mmol/L (22-30); Chloride 101 mmol/L (98-107); Glucose 183 mg/dL (74-99); Lipase 509 U/L (23-300); Magnesium 1.8 mg/dL (1.6-2.3); Non-African American GFR(CKD) >90 (>60 ml/min/1.73 sqM); Potassium 3.6 mmol/L (3.5-5.1); Sodium 134 mmol/L (137-145); Total Bilirubin 0.8 mg/dL (0.2-1.3); Total Protein 7.2 g/dL (6.3-8.2)
[2023-12-23] MEDS: SODIUM CHLORIDE 0.9% 1,000 ML IV STA (17:25)
--- NOTE | 2023-12-23 17:40 | XR ---
EXAMINATION TYPE: XR KUB DATE OF EXAM: 12/23/2023 5:02 PM CLINICAL INDICATION:Female, 53 years old with history of abdominal pain; H COMPARISON: None. TECHNIQUE: One radiographic view of the abdomen was obtained. FINDINGS: The bowel gas pattern is nonspecific without dilated loops of small or large bowel. There i s no evidence for organomegaly or pneumoperitoneum. The osseous structures are intact. Pelvic phleb oliths are present. Fecal material and gas are demonstrated throughout the colon and rectum. IMPRESSION: Nonspecific bowel gas pattern without radiographic evidence for acute process.
[2023-12-23 17:45] LABS: Appearance,Urine Clear (Clear); Bilirubin,Urine Negative (Negative); Blood,Urine Trace (Negative); Color,Urine Yellow; Glucose,Urine (UA) Negative (Negative); Ketones,Urine Trace (Negative); Leukocyte Esterase,Urine Negative (Negative); Mucus,Urine Few /hpf; Nitrite,Urine Negative (Negative); PH, Urine 5.5 (5.0-8.0); Protein,Urine Trace (Negative); RBC,Urine <1 /hpf (0-5); Specific Gravity,Urine 1.011 (1.001-1.035); Squamous Epithelial Cell,Urine 1 /hpf (0-4); Urobilinogen,Urine <2.0 mg/dL (<2.0); WBC,Urine 2 /hpf (0-5)
--- NOTE | 2023-12-23 18:19 | US ---
EXAMINATION TYPE: US gallbladder DATE OF EXAM: 12/23/2023 COMPARISON: 02/16/2019. CLINICAL INDICATION: Female, 53 years old with history of Right upper quadrant abdominal pain, histor y of ga; Hx of pancreatitis from stones TECHNIQUE: Multiple sonographic images of the right upper quadrant are obtained. FINDINGS: EXAM MEASUREMENTS: Liver Length: lobe extends past field of view: est. 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 there is a 2.0x1.3x1.8cm hypoechoic area with internal vascularity at the pancreatic head Liver: dilated intrahepatic bile ducts, coarse echotexture compared to prior US on 12/28/19 Gallbladder: distended up to 11.4cm no stones visualized. Gallbladder wall is within normal limits. No pericholecystic fluid. Evidence for sonographic Gomez's sign: No CBD: enlarged Right Kidney: No hydronephrosis or masses seen exam limited by bowel gas and patient pain IMPRESSION: 1. Masslike area in the pancreatic head with dilation of the pancreatic duct concerning for neoplasm with obstruction of the main pancreatic duct. Further evaluation with MRI or CT pancreatic mass prot ocol recommended. 2. Evidence of chronic pancreatitis. 3. Gallbladder which could be due to patient's fasting status. Correlate clinically.
[2023-12-23 18:47] VITALS: BP 111/75; PULSE 88; TEMP 98.1
== END 2023-12-23 19:36 | disposition home or self-care (01) ==
LOC: EC 16:15
DX: K80.50 Calculus of bile duct without cholangitis or cholecystitis without obstruction (principal); K86.1 Other chronic pancreatitis; I10 Essential (primary) hypertension; E78.5 Hyperlipidemia, unspecified; K21.9 Gastro-esophageal reflux disease without esophagitis; M19.90 Unspecified osteoarthritis, unspecified site; F17.200 Nicotine dependence, unspecified, uncomplicated; Z79.1 Long term (current) use of non-steroidal anti-inflammatories (NSAID); Z79.899 Other long term (current) drug therapy; Z91.041 Radiographic dye allergy status; Z91.013 Allergy to seafood; Z91.018 Allergy to other foods
CPT/HCPCS: 36415; 74018; 76705; 80053; 81001; 82150; 83605; 83690; 83735; 84484; 85025; 96360; 96361; 99285